=== PATIENT | female | born 1940 | race Caucasian/White ===

== ENCOUNTER → 2017-05-28 07:19 | Outpatient (CLI) | payer MEDICARE, SELFPAY ==
--- NOTE | 2017-05-28 07:22 | NM_ITS ---
History and Indications: Coronary artery disease, hypertension, diabetes, hyperlipidemia, tobacco use, family history and shortness of breath. Procedure: Patient received a 0.4 mg of Lexiscan, resting heart rate was 51 bpm, resting blood pressure 183/68, with Lexiscan maximum heart rate achieved was 89 bpm which is less than 85% of the maximum predicted heart rate and a blood pressure was 154/63. With Lexiscan patient complained of mild chest pressure and shortness of breath Electrocardiogram: Resting electrocardiogram showed sinus bradycardia, with Lexiscan there is less than 1.[address] segment depression noted from the baseline EKG. The EKG portion of the Lexiscan Myoview is nondiagnostic. Cardiac stress and resting SPECT images: Cardiac stress and rest SPECT images were obtained using technetium 99 Myoview 10.2 mCi at rest 32 mCi at stress, gated SPECT further analysis of segmental wall motion and calculation of the ejection fraction also done. Cardiac stress and rest SPECT images show a mild fixed defect anteroseptally and infero laterally with normal contractility on the gated SPECT is likely secondary to soft tissue attenuation, no reversible ischemia seen, computer derived ejection fraction is over 65% with no obvious regional wall motion abnormality, right ventricle is normal size and contractility. Conclusion: 1. The EKG portion of the Lexiscan Myoview is nondiagnostic. 2. No obvious scintigraphic evidence of reversible ischemia seen, computer derived ejection fraction is over 65% with no obvious regional wall motion abnormality, right ventricle is normal size and contractility.
--- NOTE | 2017-05-28 07:22 | CA_ITS ---
PROCEDURE: 2-D M-mode and color Doppler study INDICATIONS FOR THE TEST: Chest pain+ COPD Heart Murmur Tobacco Smoking Palpitations Fatigue Syncope Edema Hypertension+Diabetes Mellitus Rheumatic Fever SOB+MENDOZA Obesity Hyperlipidemia+ Family History HD Additional History PATIENT INFORMATION HEIGHT: 65 WEIGHT: 157 GENDER: Female B/P: 142/67 2-D/M-MODE INTERPRETATION: 2-D MEASUREMENTS OBSERVED VALUES IN CMS Right Ventricular Dimension (RVDd) 2.0 Interventricular Septum (Thickness)(IVsd) 0.8 Left Ventricular Internal Dimensions(LVIDd) 3.8 Left Ventricular Posterior Wall (Thickness)(LVPWd) 0.9 Aortic Root 3.0 Aortic Cusp Separation 2.0 Left Atrial Dimensions (LAD) 3.3 2D 1. Left atrium is mildly enlarged, left ventricle is normal size, left ventricle wall thickness is upper limit of the normal, septum has sigmoid configuration, visually estimated ejection fraction 55% with no obvious regional wall motion abnormality. 2. The right atrium and right ventricle are normal size and contractility. 3. The aortic valve is minimally thickened and fibrosed. 4. The mitral and tricuspid valve are structurally normal. 5. The pulmonic valve is poorly visualized. 6. No significant pericardial effusion noted. DOPPLER INTERROGATION: Doppler interrogation of the aortic, mitral and tricuspid valvular presence of mild mitral and tricuspid regurgitation, tricuspid regurgitant jet velocity is insufficient for calculation of the right ventricular systolic pressure, grade 1 diastolic dysfunction seen with tissue Doppler evidence of raised left atrial pressure. CONCLUSION: 1. Mildly enlarged left atrium, normal left ventricular size, visually estimated ejection fraction 55% with no obvious regional wall motion abnormality, grade 1 diastolic dysfunction seen with tissue Doppler evidence of raised left atrial pressure. 2. Mild mitral and tricuspid addition 3. No significant pericardial effusion noted.
--- NOTE | 2017-05-28 09:40 | HMH.ITSHM ---
levothyroxine cavedilol plavix [facility] b-12
== END ==
PROVIDERS: PCP Family Medicine; Visit Provider Internal Medicine
DX: I25.10 Atherosclerotic heart disease of native coronary artery without angina pectoris (principal)
CPT/HCPCS: 78452; 93017; 93306; A9502; J2785

== ENCOUNTER → 2018-10-03 06:40 | Outpatient (CLI) | payer MEDICARE, SELFPAY ==
--- NOTE | 2018-10-03 06:43 | CA_ITS ---
PROCEDURE: 2-D M-mode and color Doppler study INDICATIONS FOR THE TEST: Chest pain X COPD Heart Murmur Tobacco Smoking Palpitations Fatigue Syncope Edema HypertensionXDiabetes MellitusX Rheumatic Fever SOBXDOE Obesity Hyperlipidemia Family History HD Additional History CAD PATIENT INFORMATION HEIGHT: 65 WEIGHT:158 GENDER: Female B/P:159/46 2-D/M-MODE INTERPRETATION: 2-D MEASUREMENTS OBSERVED VALUES IN CMS Right Ventricular Dimension (RVDd) 1.6 Interventricular Septum (Thickness)(IVsd) 1.0 Left Ventricular Internal Dimensions(LVIDd) 5.0 Left Ventricular Posterior Wall (Thickness)(LVPWd) 1.0 Aortic Root 3.4 Aortic Cusp Separation 1.5 Left Atrial Dimensions (LAD) 2.9 2D 1. Left atrium is mildly enlarged, left ventricle is normal size, mild concentric left ventricular hypertrophy, visually estimated ejection fraction of 55% with no regional wall motion abnormality, septum has sigmoid configuration. 2. The right atrium and right ventricle are normal size and contractility. 3. The aortic valve is thickened and calcified leaflet continue to display mobility. 4. The mitral and tricuspid valve leaflets are minimally thickened 5. The pulmonic valve is poorly visualized. 6. No significant pericardial effusion noted. DOPPLER INTERROGATION: Doppler interrogation of the aortic, mitral and tricuspid valvular presence of mild mitral and tricuspid regurgitation, tricuspid regurgitation jet velocity is inadequate for calculation of the right ventricular systolic pressure, grade 1 diastolic dysfunction seen with tissue Doppler evidence of raised left atrial pressure. Inferior vena cava is not well visualized. CONCLUSION: 1. Mildly enlarged left atrium, normal left ventricular size, mild concentric left ventricular hypertrophy, visually estimated ejection fraction 55% with no regional wall motion abnormality, septum has sigmoid configuration. Grade 1 diastolic dysfunction seen with tissue Doppler evidence of raised left atrial pressure. 2. Mild mitral and tricuspid regurgitation. 3. No significant pericardial effusion noted.
--- NOTE | 2018-10-03 06:53 | NM_ITS ---
History:Chest pain, SOB, Syncope, Fatigue, CAD, HTN, DM, Family history Procedure: Patient received a 0.4 mg of intravenous Lexiscan, resting heart rate 57 bpm, resting blood pressure 179/76, with Lexiscan maximum heart rate achieve was 93 bpm which is less than 85 % of the maximum predicted heart rate and blood pressure was 173/67. WIth Lexiscan patient complaint of chest pain. Electrocardiogram: Resting electrocardiogram showed sinus bradycardia, with Lexiscan there is less than 1.5mm ST segment depression noted from the baseline EKG. The EKG portion of the Lexiscan Myoview is nondiagnostic. Cardias Stress and Resting SPECT images: Cardias Stress and Resting SPECT images were obtained using technetium 99m Myoview 32.6 mCi stress and 10.55 mCi at rest. Gated SPECT further analysis of segmental wall motion and calculation of ejection fraction also done. Cardiac stress and resting SPECT show uniform myocardial activity without segmental perfusion abnormality, the computer derived ejection fraction is over 65% with regional wall motion abnormality. Right ventricle is normal size and contractility. Conclusion: 1. The EKG portion of the Lexiscan Myoview is nondiagnostic. 2. No scintigraphic evidence of reversible ischemia seen, computer derived ejection fraction is over 65% with no regional wall motion abnormality. Right ventricle is normal size and contractility. 3. Normal Lexiscan Myoview study.
--- NOTE | 2018-10-03 07:18 | HMH.ITSHM ---
Current Home Medications as stated by this patient Yeni Smith or customer relations representative. []LEVOTHYROXINE CARVEDILOL VITAMIN D CLOPIDOGREL NOVOLIN TEKTURNA VITAMIN B12 NEXIUM LINZESS MAGNESIUM OXIDE
== END ==
PROVIDERS: PCP Family Medicine; Visit Provider Internal Medicine
DX: I20.8 Other forms of angina pectoris; R06.02 Shortness of breath; I11.9 Hypertensive heart disease without heart failure
CPT/HCPCS: 78452; 93017; 93306; A9502; J2785

== ENCOUNTER → 2019-12-26 16:14 | Outpatient (CLI) | payer MEDICARE, SELFPAY ==
--- NOTE | 2019-12-26 16:14 | MR_ITS ---
PROCEDURE: MR HEAD/BRAIN WO CON CLINICAL INDICATION: to rule out CVA Confusion, blurred vision, headache, recent TIA COMPARISON: No exams were available for comparison TECHNIQUE: Routine multiplanar multi echo sequences are performed without gadolinium enhancement. FINDINGS: No midline shift, mass effect, intracranial hemorrhage, or hydrocephalus is evident. There is a small cortical area restricted diffusion in the right parietal lobe. This is slightly hyperintense on the ADC images suggesting a subacute area of infarction. No other areas of acute infarction suspected. There is a complex small oval cystic area in the left external capsule region consistent with an old lacunar infarction with cystic encephalomalacia change. There are few scattered periventricular and subcortical T2 white matter hyperintensities noted. There is mild generalized atrophy. The cerebellopontine angle, cerebellum, and brainstem have an unremarkable appearance. The pituitary, optic chiasm, corpus callosum, and craniocervical junction have an unremarkable appearance. No mastoid effusion or sinus air-fluid levels evident. IMPRESSION: 1. Small area of subacute infarction in the cortical region of the right parietal lobe. 2. Involutional changes of age with mild atrophy and periventricular ischemic gliotic change. 3. 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
== END ==
PROVIDERS: PCP Family Medicine; Visit Provider Internal Medicine
DX: E11.9 Type 2 diabetes mellitus without complications (principal); E78.2 Mixed hyperlipidemia; G45.9 Transient cerebral ischemic attack, unspecified; H53.8 Other visual disturbances; I11.9 Hypertensive heart disease without heart failure; N18.2 Chronic kidney disease, stage 2 (mild); R06.02 Shortness of breath; R42 Dizziness and giddiness; R47.9 Unspecified speech disturbances; R53.83 Other fatigue; Z79.4 Long term (current) use of insulin
CPT/HCPCS: 70551

== ENCOUNTER 2022-03-13 16:15 | Inpatient (IN) | payer MEDICARE, SELFPAY ==
[2022-03-13 16:25] VITALS: BP 190/56; PULSE 70; RESP 18; TEMP 36.9; O2SAT 95
--- NOTE | 2022-03-13 16:31 | PC.NURSE ---
notified of pt's arrival. Verbalized understanding.
[2022-03-13 16:45] VITALS: BP 178/61; PULSE 68; RESP 18
[2022-03-13 17:00] VITALS: O2SAT 95
[2022-03-13 17:46] VITALS: BMI 27.9
--- NOTE | 2022-03-13 17:56 | CT_ITS ---
PROCEDURE INFORMATION: Exam: CT Left Lower Extremity Without Contrast, Hip Exam date and time: 03/13/2022 6:17 PM Age: 81 years old Clinical indication: Injury or trauma; Fall; Additional info: Fracture to left hip TECHNIQUE: Imaging protocol: CT of the Left lower extremity without contrast was performed. Exam focused on the hip. 3D rendering (Not supervised by radiologist): MIP and/or 3D reconstructed images were created by the technologist. Radiation optimization: All CT scans at this facility use at least one of these dose optimization techniques: automated exposure control; mA and/or kV adjustment per patient size (includes targeted exams where dose is matched to clinical indication); or iterative reconstruction. COMPARISON: No relevant prior studies available. FINDINGS: Bones/joints: Slightly impacted fracture of the femoral neck with increased varus angulation. There is no evidence of joint malalignment or dislocation. Soft tissues: Lateral soft tissue swelling. IMPRESSION: 1. Slightly impacted fracture of the femoral neck with increased varus angulation. 2. Lateral soft tissue swelling. 3. No evidence of acute dislocation.
--- NOTE | 2022-03-13 18:17 | PC.NURSE ---
Pt taken to CT via bed and Radiology staff x2.
--- NOTE | 2022-03-13 18:24 | PC.NURSE ---
Pt returned to room [address] Scan
[2022-03-13 18:44] LABS: Basophils % 0.2 % (0.1-2.0); Eosinophils # 0.1 K/mm3 (0.0-0.4); Eosinophils % 0.5 % (0.1-12.0); Hematocrit 41.5 % (37.0-47.0); Hemoglobin 13.6 g/dL (12.2-16.2); Lymphocytes # 0.8 K/mm3 (0.7-4.5); Mean Corpuscular HGB Conc 32.8 g/dL (31.8-35.4); Mean Corpuscular Hemoglobin 30.2 pg (27.0-31.2); Mean Corpuscular Volume 92.2 fl (81-99); Mean Platelet Volume 8.4 fl (7.4-10.4); Monocytes # 0.7 K/mm3 (0.1-1.0); Monocytes % 5.3 % (1.7-9.3); Neutrophils # 12.2 K/mm3 (1.8-7.8); Platelet Count 243 K/mm3 (142-424); Red Cell Distribution Width 13.6 % (11.5-17.5); White Blood Count 13.8 K/mm3 (4.8-10.8)
[2022-03-13 18:46] LABS: MANUAL DIFFERENTIAL MANUAL DIFFERENTIAL (MANUAL DIFF)
[2022-03-13 19:00] LABS: Chloride 102 mmol/L (98-107); Potassium 4.1 mmoL/L (3.5-5.1); Sodium 139 mmol/L (136-145)
[2022-03-13 19:03] LABS: Alanine Aminotransferase 21 U/L (12-78); Albumin Level 4.3 g/dl (3.5-5.0); Albumin/Globulin Ratio 1.7 (1.1-1.8); Alkaline Phosphatase 97 U/L (38-126); Anion Gap 13.1 mEq/L (5-15); Aspartate Amino Transferase 41 U/L (14-36); Bilirubin,Total 0.8 mg/dl (0.2-1.3); Blood Urea Nitrogen 15 mg/dl (7-17); Calcium 9.5 mg/dl (8.4-10.2); Carbon Dioxide 28 mmol/L (22.0-30.0); Creatinine Clearance Estimated 51 mL/min (50-200); Estimated Glomerular Filt Rate 60 ml/min (>60); GFR (African American) 73 ML/MIN (>60); Globulin 2.6 g/dL (1.3-3.2); Glucose 153 mg/dl (74-100); Total Protein,Serum 6.9 g/dl (6.3-8.2)
[2022-03-13 19:16] LABS: INR 0.95 (0.9-1.1); Prothrombin Time 10.3 seconds (10.1-12.5)
[2022-03-13 19:17] LABS: Lymphocytes % 11 % (10-50); Monocytes % 1 % (2-9); Neutrophils % 83 % (42-76); Total Cells Counted 100
[2022-03-13 19:18] LABS: Platelet Estimate Normal; RBC Morphology Normal
--- NOTE | 2022-03-13 19:46 | EXP.HP ---
History of Present Illness *Admission Date: 03/13/22 *Reason for visit:: Fall *History of present illness: 81-year-old female with extensive medical history who presents as a transfer from [facility] due to a fall to ground level while standing in line at [facility]. Patient does not remember any preceding events but spontaneously fell and landing on her hip breaking her left femur. Did not lose consciousness. Did not hit her head does not have any infectious symptoms or urinary tract infection symptoms. Patient was transferred for orthopedic evaluation at [facility]. Currently she is anxious and in significant pain due to her hip. She has no other complaint at this time. Discussed going to the OR in the morning and symptomatic management. Patient is agreeable understands. [facility] Disclaimer: The information contained in this section may have been updated after the patient was seen, as this information can be updated by other users. Medical History Abnormal EKG Blurry vision Difficulty with speech Dizziness Sinus bradycardia TIA (transient ischemic attack) Social History Smoking Status: Never smoker alcohol intake: never substance use type: denies use current occupational status: other Travel in the last 8 weeks: None Review of Systems Review of Systems Review of systems:: pertinent systems reviewed and negative unless documented below Meds Home Medications and Allergies Home Medications Medication Instructions Recorded Confirmed Type levothyroxine 100 mcg tablet 100 mcg PO DAILY Supplement 05/18/17 03/13/22 History cholecalciferol (vitamin D3) 50 2,000 unit PO DAILY Supplement 09/22/17 03/13/22 History mcg (2,000 unit) capsule cyanocobalamin (vitamin B-12) 1,000 mcg PO DAILY Supplement 09/22/17 03/13/22 History 1,000 mcg tablet (Vitamin B-12) esomeprazole magnesium 40 mg 40 mg PO DAILY Heartburn 09/22/17 03/13/22 History capsule,delayed release (Nexium) polyethylene glycol 3350 17 17 g PO DAILY PRN 09/20/18 11/04/21 History gram/dose oral powder (Miralax) vitamins A,C,A-ymre-iujycz 14,320 1 cap PO BID Supplement 09/20/18 03/13/22 History unit-226 mg-200 unit capsule (ICaps AREDS) nitroglycerin 0.4 mg sublingual 0.4 mg sublingual Q5M PRN chest 10/31/19 11/04/21 Rx tablet (Nitrostat) pain #20 tabs insulin NPH isoph U-100 human 100 12 - 14 unit SQ BID Diabetes 06/24/20 03/13/22 History unit/mL subcutaneous suspension (Novolin N NPH U-100 Insulin isophane) insulin regular human 100 unit/mL 6 - 8 unit IM BID Diabetes 06/24/20 03/13/22 History injection solution (Novolin R Regular U-100 Insulin) aliskiren 300 mg tablet (Tekturna) 300 mg PO DAILY High blood pressure 03/13/22 03/13/22 History amlodipine 10 mg tablet 10 mg PO DAILY Hypertension 03/13/22 03/13/22 History carvedilol 25 mg tablet (Coreg) 12.5 mg PO BID Heart disease 03/13/22 03/13/22 History clopidogrel 75 mg tablet 75 mg PO DAILY Heart disease 03/13/22 03/13/22 History evolocumab 140 mg/mL subcutaneous See Rx Instructions .Route 03/13/22 03/13/22 History pen injector (Repatha SureClick) .COMPLEX Heart disease New Prescriptions to Start Prescriptions: Allergies Allergy/AdvReac Type Severity Reaction Status Date / Time tizanidine Allergy Severe unknown Verified 03/13/22 17:57 ezetimibe [From Nexlizet] Allergy Intermediate myalgia Verified 03/13/22 17:55 aspirin Allergy Mild Verified 03/13/22 17:57 clopidogrel [From Plavix] Allergy Mild Verified 03/13/22 17:57 NSAIDS (Non-Steroidal Allergy Mild Verified 03/13/22 17:57 Anti-Inflamma Penicillins Allergy Mild Verified 03/13/22 17:57 Ddlqukp-ZQZ-RiT Reductase Allergy Mild Verified 03/13/22 17:57 Inhibitor [Xqoyngy-Iye-Pad Reductase Inhibitor] Sulfa (Sulfonamide Allergy Mild Verified 03/13/22 17:57
[2022-03-13 20:25] VITALS: BP 153/57; PULSE 67; RESP 17; TEMP 37.4; O2SAT 94
[2022-03-13 20:30] LABS: POC Glucose,Bedside 161 (70-110)
[2022-03-14] VITALS (24 sets, daily range): BP systolic 114–156; BP diastolic 46–77; PULSE 56–70; RESP 14–18; TEMP 36.4–43; O2SAT 92–98; BMI 27.8
--- NOTE | 2022-03-14 00:10 | XR_ITS ---
PROCEDURE INFORMATION: Exam: XR Chest Exam date and time: 03/14/2022 12:52 AM Age: 81 years old Clinical indication: Screening exam; Pre-operative exam; Cardiovascular screening; Additional info: Pre-op for hip surgery TECHNIQUE: Imaging protocol: Radiologic exam of the chest. Views: 1 view. COMPARISON: No relevant prior studies available. FINDINGS: Lungs: Unremarkable. No consolidation. Pleural spaces: Unremarkable. No pleural effusion. No pneumothorax. Heart/Mediastinum: Unremarkable. No cardiomegaly. Bones/joints: Unremarkable. IMPRESSION: No acute findings.
[2022-03-14 00:48] LABS: Microscopic, Urine URINE MICROSCOPIC (MICROSCOPIC)
--- NOTE | 2022-03-14 01:00 | ECG_ITS ---
APPROVED REPORT Exam: Resting ECG HR:58 bpm ECG Measurements Heart Rate 58 AXES HI 181 P 48 QRSd 98 QRS 23 QT 400 T 51 QTc 397 Conclusion SINUS BRADYCARDIA LOW QRS VOLTAGE IN PRECORDIAL LEADS [QRS DEFLECTION < 1.0 mV IN CHEST LEADS] BORDERLINE ECG UNCONFIRMED REPORT Electronically signed by : Rogelio Grimm MD 03/14/2022 21:19:28
[2022-03-14 01:01] LABS: Appearance,Urine CLEAR (Clear); Bilirubin,Urine Negative (Negative); Blood, Urine TRACE-L (Negative); Color,Urine YELLOW (Yellow); Glucose,Urine (UA) Negative (Negative); Ketones,Urine Negative (Negative); Leukocyte Esterase,Urine Negative (Negative); Nitrate,Urine Negative (Negative); Protein,Urine TRACE (Negative); Urobilinogen,Urine 0.2 EU/dl (0.2)
[2022-03-14 01:06] LABS: Amorphous Sediment,Urine Trace /lpf; Mucus,Urine Trace /lpf
--- NOTE | 2022-03-14 01:09 | PC.NURSE ---
called hospitalist at this [facility], EKG shows bradycardia with a rate of 57. states EKG is fine to place in chart.
[2022-03-14 07:19] LABS: POC Glucose,Bedside 169 (70-110)
--- NOTE | 2022-03-14 07:20 | PC.NURSE ---
at bs to discuss procedure with pt. Pt verbalizes understanding. Consent signed. O.R. staff x2 at bs also.
--- NOTE | 2022-03-14 07:25 | PC.NURSE ---
dr collins in room discussing surgery with patient at this time
--- NOTE | 2022-03-14 07:30 | PC.NURSE ---
anesthesia on unit discussing anesthesia at this time
--- NOTE | 2022-03-14 07:36 | PC.NURSE ---
Pt taken to O.R. via bed and O.R. nurse (Bijal) and anesthesia (Phu).
--- NOTE | 2022-03-14 07:41 | EXP.ORTH.CON ---
History of Present Illness *Admission Date: 03/13/22 *History of present illness: 81-year-old female with extensive medical history who presents as a transfer from [facility] due to a fall to ground level while standing in line at [facility]. Patient does not remember any preceding events but spontaneously fell and landing on her hip breaking her left femur. Did not lose consciousness. Did not hit her head does not have any infectious symptoms or urinary tract infection symptoms. Patient was transferred for orthopedic evaluation at [facility]. Currently she is anxious and in significant pain due to her hip. She has no other complaint at this time. Discussed going to the OR in the morning and symptomatic management. Patient is agreeable understands. [facility] Disclaimer: The information contained in this section may have been updated after the patient was seen, as this information can be updated by other users. Medical History Abnormal EKG Blurry vision Difficulty with speech Dizziness Sinus bradycardia TIA (transient ischemic attack) Social History Smoking Status: Never smoker alcohol intake: never substance use type: denies use current occupational status: other Travel in the last 8 weeks: None Review of Systems *Respiratory Respiratory: Reports system reviewed and no additional complaints, except as documented Meds Home Medications and Allergies Home Medications Medication Instructions Recorded Confirmed Type levothyroxine 100 mcg tablet 100 mcg PO DAILY Supplement 05/18/17 03/13/22 History cholecalciferol (vitamin D3) 50 2,000 unit PO DAILY Supplement 09/22/17 03/13/22 History mcg (2,000 unit) capsule cyanocobalamin (vitamin B-12) 1,000 mcg PO DAILY Supplement 09/22/17 03/13/22 History 1,000 mcg tablet (Vitamin B-12) esomeprazole magnesium 40 mg 40 mg PO DAILY Heartburn 09/22/17 03/13/22 History capsule,delayed release (Nexium) polyethylene glycol 3350 17 17 g PO DAILY PRN 09/20/18 11/04/21 History gram/dose oral powder (Miralax) vitamins A,C,Z-ukrb-sbchnc 14,320 1 cap PO BID Supplement 09/20/18 03/13/22 History unit-226 mg-200 unit capsule (ICaps AREDS) nitroglycerin 0.4 mg sublingual 0.4 mg sublingual Q5M PRN chest 10/31/19 11/04/21 Rx tablet (Nitrostat) pain #20 tabs insulin NPH isoph U-100 human 100 12 - 14 unit SQ BID Diabetes 06/24/20 03/13/22 History unit/mL subcutaneous suspension (Novolin N NPH U-100 Insulin isophane) insulin regular human 100 unit/mL 6 - 8 unit IM BID Diabetes 06/24/20 03/13/22 History injection solution (Novolin R Regular U-100 Insulin) aliskiren 300 mg tablet (Tekturna) 300 mg PO DAILY High blood pressure 03/13/22 03/13/22 History amlodipine 10 mg tablet 10 mg PO DAILY Hypertension 03/13/22 03/13/22 History carvedilol 25 mg tablet (Coreg) 12.5 mg PO BID Heart disease 03/13/22 03/13/22 History clopidogrel 75 mg tablet 75 mg PO DAILY Heart disease 03/13/22 03/13/22 History evolocumab 140 mg/mL subcutaneous See Rx Instructions .Route 03/13/22 03/13/22 History pen injector (Repatha SureRaviick) .COMPLEX Heart disease New Prescriptions to Start Prescriptions: Allergies Allergy/AdvReac Type Severity Reaction Status Date / Time tizanidine Allergy Severe unknown Verified 03/13/22 17:57 ezetimibe [From Nexlizet] Allergy Intermediate myalgia Verified 03/13/22 17:55 aspirin Allergy Mild Verified 03/13/22 17:57 clopidogrel [From Plavix] Allergy Mild Verified 03/13/22 17:57 NSAIDS (Non-Steroidal Allergy Mild Verified 03/13/22 17:57 Anti-Inflamma Penicillins Allergy Mild Verified 03/13/22 17:57 Loljhzo-DRB-YbK Reductase Allergy Mild Verified 03/13/22 17:57 Inhibitor [Pqailfk-Ykm-Poq Reductase Inhibitor] Sulfa (Sulfonamide Allergy Mild Verified 03/13/22 17:57 Antibiotics) ticlop
[2022-03-14 07:50] LABS: Basophils % 0.4 % (0.1-2.0); Eosinophils # 0.2 K/mm3 (0.0-0.4); Eosinophils % 2.5 % (0.1-12.0); Hematocrit 37.3 % (37.0-47.0); Hemoglobin 12.3 g/dL (12.2-16.2); Lymphocytes % 10.2 % (10-50); Mean Corpuscular Hemoglobin 30.6 pg (27.0-31.2); Mean Corpuscular Volume 92.9 fl (81-99); Mean Platelet Volume 8.4 fl (7.4-10.4); Monocytes # 0.7 K/mm3 (0.1-1.0); Monocytes % 7.1 % (1.7-9.3); Neutrophils # 7.7 K/mm3 (1.8-7.8); Neutrophils % 79.8 % (37.0-80.0); Platelet Count 248 K/mm3 (142-424); Red Blood Count 4.01 M/mm3 (4.20-5.40); Red Cell Distribution Width 13.5 % (11.5-17.5); White Blood Count 9.6 K/mm3 (4.8-10.8)
[2022-03-14 07:56] LABS: Alanine Aminotransferase 16 U/L (12-78); Albumin Level 3.9 g/dl (3.5-5.0); Albumin/Globulin Ratio 1.7 (1.1-1.8); Alkaline Phosphatase 82 U/L (38-126); Anion Gap 11.1 mEq/L (5-15); Aspartate Amino Transferase 28 U/L (14-36); Bilirubin,Total 0.9 mg/dl (0.2-1.3); Blood Urea Nitrogen 20 mg/dl (7-17); Calcium 8.9 mg/dl (8.4-10.2); Carbon Dioxide 28 mmol/L (22.0-30.0); Chloride 102 mmol/L (98-107); Creatinine Clearance Estimated 46 mL/min (50-200); Estimated Glomerular Filt Rate 48 ml/min (>60); GFR (African American) 58 ML/MIN (>60); Globulin 2.3 g/dL (1.3-3.2); Glucose 172 mg/dl (74-100); Magnesium 1.3 mg/dl (1.6-2.3); Phosphorous 4.2 mg/dl (2.5-4.5); Potassium 4.1 mmoL/L (3.5-5.1); Sodium 137 mmol/L (136-145); Total Protein,Serum 6.2 g/dl (6.3-8.2)
--- NOTE | 2022-03-14 08:21 | EXP.ANES.CKL ---
[facility] Disclaimer: The information contained in this section may have been updated after the patient was seen, as this information can be updated by other users. Medical History Abnormal EKG Blurry vision Difficulty with speech Dizziness Sinus bradycardia TIA (transient ischemic attack) Social History Smoking Status: Never smoker alcohol intake: never substance use type: denies use current occupational status: other Travel in the last 8 weeks: None [facility] Anesthesia Checklist Patient Identification Patient Identification: Arm Band and Verbal (Name & ) Structural Data Admitted From: Inpatient Planned Operative Procedure/s: Left Ezio Arthroplasty Consent for Planned Operative Procedure(s) Verified: Yes Verified Documents: Surgical Consent NPO Status Verified Time NPO: 00:00 Airway Assessment C-Spine Mobility Assessed: Yes TMJ Mobility Assessed: Yes Dentition: Good Dentition Neurological Assessment Level of Consciousness: Awake, Alert and Appropriate Anesthesia Plan Anesthesia Risk discussed: Yes ASA Class: III Anesthesia Type: General
--- NOTE | 2022-03-14 09:43 | XR_ITS ---
PROCEDURE INFORMATION: Exam: XR Left Hip Exam date and time: 03/14/2022 10:18 AM Age: 81 years old Clinical indication: Device placement; Additional info: S/P left hip hemiarthroplasty TECHNIQUE: Imaging protocol: Radiologic exam of the Left hip. Views: 2 or 3 views hip with pelvis when performed. COMPARISON: CT HIP LT WO CON 03/13/2022 6:17 PM FINDINGS: Bones/joints: Postoperative changes related to left hybrid hemiarthroplasty. No hardware-related complication noted. No hardware-related complication noted. No visible fracture or dislocation. Soft tissues: Unremarkable. IMPRESSION: No visible fracture or dislocation.
--- NOTE | 2022-03-14 09:59 | EXP.ANES.I ---
[facility] Anesthesia Record Part I Anesthesia Record I Intake, IV Amount: 1,200 Estimated blood loss (mL): 350 Urine output (mL): 100 Blood Pressure: 141/56 SaO2: 92 Pulse Rate: 67 Respiratory Rate: 14 Temperature: 97.5 F Patient is:: Drowsy, Mask O2 and Stable Stable to PACU at:: 09:54
--- NOTE | 2022-03-14 10:02 | EXP.OP.NOTE ---
Date of procedure: 03/14/22 Pre-op Diagnosis:: Left femoral neck fracture Post-op Diagnosis:: Same Procedure performed:: Cemented left hip hemiarthroplasty Surgeon:: Trace Shaw JR, MD LITHOGRAPHING MACHINE OPERATOR:: Phu Paul Anesthesia: GRACIELA Estimated blood loss (mL): 350 Clinical Note:: 81-year-old female sustained left femoral neck fracture as result of a ground-level fall. I had a discussion with her regarding further management and after discussion of risk, benefits, alternatives, she wished to proceed with left cemented hip hemiarthroplasty. We discussed the risk and benefits of surgery. Risks included but were not limited to pain, bleeding, infection, damage to adjacent structures, need for further surgery, wound healing complications, loss of limb, . Patient expressed verbal consent and written consent was obtained for the above procedure. Operative findings:: Symmetric leg length, stable hip noted. [employer] bipolar cemented Ezio system. Size 0 standard offset stem, +0 head, 47 mm bipolar. Operative note:: Patient was identified in preoperative holding. Operative site was marked in indelible ink. History, physical, consent were reviewed and updated. Patient was surrendered to the anesthesia team, taken to the operative suite. Anesthesia was induced. Patient was then placed in the lateral decubitus position on a well-padded operative table. All bony prominences were padded and an axillary roll was placed. The operative extremity was prepped and draped in the usual sterile fashion. The operative team donned sterile gowns and gloves and a timeout was called. All in attendance agreed regarding the patient's identity, procedure, operative site. Weight-based dose of antibiotics was given prior to incision. A skin maker was then used to wilton all bony prominences. Skin incision was then carried out extending from the greater trochanter in a curvilinear fashion posteriorly across the buttocks. I incised the skin with a scalpel, then using a Bovie dissected through tissues. The fascia patricia was incised utilizing Metzenbaum scissors. This was taken down to the bursa, which was removed utilizing a rongeur. Utilizing a periosteal elevator as well as the sponge, the fat was then freed from the short external rotators of the left hip after these were placed and stretched. The sciatic nerve was protected. Bovie was used to remove the short external rotators from the greater trochanter, which revealed the joint capsule. His were tagged for later repair. The capsule was cleared and incised utilizing a T-shape incision. A fracture hematoma was noted upon entering the joint capsule as well as the femoral neck fracture. A cork screw was then used to remove the fractured femoral head, which was given to the regulatory technician which was sized on the back table. All bony remnants were then removed from the acetabulum and surrounding soft tissue with a rongeur. Acetabulum was then inspected and found to be clear. Attention was then turned to the proximal femur where a cutting tunnel was used to wilton the femur for the femoral neck cut. A sagittal saw was then used to make the femoral cut. Box osteotome was then used to remove the bone from proximal femur. A femoral neck elevator was utilized. Next, attention was turned to broaching. Initially, a small broach was placed, first making efforts to lateralize the broach then the femoral canal. Next, the trial components were inserted consisting of the above-mentioned component sizes. The hip was taken through range of motion and tested to adduction, internal and external rotations as well as with a shuck and a posterior directed force on a flexed hip. It was noted that these size were stable through the range of motion. Next, the trial components were removed and the femoral canal was copiously irrigated and suctioned dry. The femoral component was then inserted. The bipolar head was applied. The hip was subsequently reduced and taken a
--- NOTE | 2022-03-14 10:57 | PC.NURSE ---
1003-fsbs 201, notified JASON Johnson, no further orders 1013-radiology at bedside 1028-detailed report called to BlankaRN 1032-pt transported to med/surg room 208 via hospital bed w/danay rails up and left in care of LAURENCE Moscoso with bed locked in lowest position, pt eating ice chips and drinking water w/out difficulty, pt reports nausea after transport-placed cool wash cloths on forehead and behind neck, notified RN taking over care of pt, vss, pt stable
--- NOTE | 2022-03-14 11:04 | PC.NURSE ---
notified pts family of her arrival back to floor
--- NOTE | 2022-03-14 11:35 | PC.NURSE ---
Notified Rodolfo of PT eval order on patient.
--- NOTE | 2022-03-14 13:39 | HMH.PHAINT1 ---
Pharmacy Intervention Comments: MEDICATION RECONCILIATION COMPLETED ON PATIENT USING EXTERNAL FILL HISTORY FROM PHARMACY AND LIST FROM CARDIOLOGY OFFICE. -KATALINA RUSSO, ACOSTAD
--- NOTE | 2022-03-14 14:45 | EXP.ACUTE.PN ---
Subjective *Date: 03/14/22 *Time: 14:45 Interval history: Evaluated postoperatively. Pain well controlled. Mild nausea. Eyes severe dryness and pain Medical Exam Vital signs and Labs for Last 24 Hours: Vital Signs Temp Pulse Pulse Pulse Resp BP BP 03/14/22 12:00 56 L 03/14/22 10:32 97.9 F 61 18 144/64 H 03/14/22 10:24 66 18 156/62 H 03/14/22 10:14 70 18 154/77 H 03/14/22 10:04 63 16 151/51 H 03/14/22 09:54 97.5 F L 67 14 141/56 H 03/14/22 06:00 98.8 F 69 18 156/57 H 03/14/22 01:10 98.7 F 67 18 150/50 H 03/13/22 20:25 99.3 F 67 17 153/57 H 03/13/22 17:00 03/13/22 16:45 68 18 178/61 H 03/13/22 16:25 98.4 F 70 18 190/56 H 03/14/22 10:00 97.5 F L 67 14 141/56 H Pulse Ox 03/14/22 12:00 03/14/22 10:32 97 03/14/22 10:24 98 03/14/22 10:14 97 03/14/22 10:04 95 03/14/22 09:54 92 L 03/14/22 06:00 94 L 03/14/22 01:10 94 L 03/13/22 20:25 94 L 03/13/22 17:00 95 03/13/22 16:45 03/13/22 16:25 95 03/14/22 10:00 Intake and Output 03/13/22 03/14/22 03/14/22 23:59 07:59 15:59 Intake Total 1300 / 1300 Output Total 1200 / 1200 50 / 50 Balance -1200 / -1200 1250 / 1250 Intake: Intake, Total IV Amount 1300 / 1300 Tranexamic Acid 750 mg In 0.9 % 100 / 100 Sodium Chloride 250 ml @ 500 mls/hr IV Q3H [facility] Rx#:[id number] Output: Output, Urine Amount 1200 / 1200 0 / 0 Output, Urine Amount (Catheter) 50 / 50 Sanchez 50 / 50 Other: Number of Unmeasured Voids 0 Weight 73.936 kg Laboratory Results - last 24 hr 03/13/22 18:35: WBC 13.8 H, RBC 4.50, Hgb 13.6, Hct 41.5, MCV 92.2, MCH 30.2, MCHC 32.8, RDW 13.6, Plt Count 243, MPV 8.4, Neut % (Auto) 88.0 H, Lymph % (Auto) 6.0 L, [place] % (Auto) 5.3, Eos % (Auto) 0.5, Baso % (Auto) 0.2, Neut # (Auto) 12.2 H, Lymph # (Auto) 0.8, [place] # (Auto) 0.7, Eos # (Auto) 0.1, Baso # (Auto) 0.0, Total Counted 100, Neutrophils % (Manual) 83 H, Band Neutrophils % 5.0, Lymphocytes % (Manual) 11, Monocytes % (Manual) 1 L, Platelet Estimate Normal, RBC Morphology Normal 03/13/22 18:35: PT 10.3, INR 0.95 03/13/22 18:35: Sodium 139, Potassium 4.1, Chloride 102, Carbon Dioxide 28, Anion Gap 13.1, BUN 15, Creatinine 0.90, Estimated Creat Clear 51, Estimated GFR 60, Est GFR ( Amer) 73, Glucose 153 H, Calcium 9.5, Total Bilirubin 0.8, AST 41 H, ALT 21, Alkaline Phosphatase 97, Total Protein 6.9, Albumin 4.3, Globulin 2.6, Albumin/Globulin Ratio 1.7 03/13/22 20:10: POC Glucose 161 H 03/13/22 22:56: Blood Type O Positive, Antibody Screen Negative 03/14/22 00:26: Urine Color Yellow, Urine Appearance Clear, Urine pH 6.0, Ur Specific [place] 1.020, Urine Protein Trace, Urine Glucose (UA) Negative, Urine Ketones Negative, Urine Blood Trace-l, Urine Nitrate Negative, Urine Bilirubin Negative, Urine Urobilinogen 0.2, Ur Leukocyte Esterase Negative, Urine RBC 3-5, Urine WBC 5-10, Amorphous Sediment Trace, Urine Mucus Trace 03/14/22 07:11: POC Glucose 169 H 03/14/22 07:22: WBC 9.6 D, RBC 4.01 L, Hgb 12.3, Hct 37.3, MCV 92.9, MCH 30.6, MCHC 33.0, RDW 13.5, Plt Count 248, MPV 8.4, Neut % (Auto) 79.8, Lymph % (Auto) 10.2, [place] % (Auto) 7.1, Eos % (Auto) 2.5, Baso % (Auto) 0.4, Neut # (Auto) 7.7, Lymph # (Auto) 1.0, [place] # (Auto) 0.7, Eos # (Auto) 0.2, Baso # (Auto) 0.0 03/14/22 07:22: Sodium 137, Potassium 4.1, Chloride 102, Carbon Dioxide 28, Anion Gap 11.1, BUN 20 H D, Creatinine 1.10 H D, Estimated Creat Clear 46, Estimated GFR 48 L, Est GFR ( Amer) 58 L D, Glucose 172 H, Calcium 8.9, Phosphorus 4.2, Magnesium 1.3 L, Total Bilirubin 0.9, AST 28 D, ALT 16, Alkaline Phosphatase 82, Total Protein 6.2 L, Albumin 3.9, Globulin 2.3, Albumin/Globulin Ratio 1.7 I & O for Labs for Last 24 Hours: Intake & Output 03/11/22 03/12/22 03/13/22 03/14/22 23:59 23:59 23:59 23:59 Intake Total 1300 / 1300 Output Total 1200 / 1200 50 / 50 Balance -1200 / -1
[2022-03-14 17:17] LABS: POC Glucose,Bedside 170 (70-110)
--- NOTE | 2022-03-14 18:39 | PC.NURSE ---
pt has rested well today. Denies any pain through out the shift. f/c patent @ bedside. poor appetite. reports improved eye irritation after ointment administration
[2022-03-14 20:39] LABS: POC Glucose,Bedside 209 (70-110)
[2022-03-15] VITALS (7 sets, daily range): BP systolic 133–160; BP diastolic 41–60; PULSE 66–90; RESP 16–18; TEMP 36.6–37.7; O2SAT 90–97; BMI 27.8
[2022-03-15 06:01] LABS: POC Glucose,Bedside 226 (70-110)
--- NOTE | 2022-03-15 06:14 | PC.NURSE ---
Pt. c/o heartburn this morning and i called the LINING PRINTER. Pt. states she takes nexium but the hospital only has protonix. pt. refused the extra dose of protonix ordered this morning.
--- NOTE | 2022-03-15 07:22 | P.PN_ITS ---
Subjective *Date: 03/15/22 *Time: 07:22 Interval history: Comfortable overnight. Ortho Exam (Inpt) Vital signs and Labs for Last 24 Hours: Temp Pulse Resp BP Pulse Ox 98 F 74 16 140/56 L 92 L 03/15/22 04:00 03/15/22 04:00 03/15/22 04:00 03/15/22 04:00 03/15/22 04:00 Laboratory Results - last 24 hr 03/14/22 07:22: WBC 9.6 D, RBC 4.01 L, Hgb 12.3, Hct 37.3, MCV 92.9, MCH 30.6, MCHC 33.0, RDW 13.5, Plt Count 248, MPV 8.4, Neut % (Auto) 79.8, Lymph % (Auto) 10.2, [place] % (Auto) 7.1, Eos % (Auto) 2.5, Baso % (Auto) 0.4, Neut # (Auto) 7.7, Lymph # (Auto) 1.0, [place] # (Auto) 0.7, Eos # (Auto) 0.2, Baso # (Auto) 0.0 03/14/22 07:22: Sodium 137, Potassium 4.1, Chloride 102, Carbon Dioxide 28, Anion Gap 11.1, BUN 20 H D, Creatinine 1.10 H D, Estimated Creat Clear 46, Estimated GFR 48 L, Est GFR ( Amer) 58 L D, Glucose 172 H, Calcium 8.9, Phosphorus 4.2, Magnesium 1.3 L, Total Bilirubin 0.9, AST 28 D, ALT 16, Alkaline Phosphatase 82, Total Protein 6.2 L, Albumin 3.9, Globulin 2.3, Albumin/Globulin Ratio 1.7 03/14/22 16:45: POC Glucose 170 H 03/14/22 20:24: POC Glucose 209 H 03/15/22 05:54: POC Glucose 226 H I & O for Labs for Last 24 Hours: Intake & Output 03/12/22 03/13/22 03/14/22 03/15/22 23:59 23:59 23:59 23:59 Intake Total 1300 / 1300 200 / 200 Output Total 1200 / 1200 150 / 150 350 / 350 Balance -1200 / -1200 1150 / 1150 -150 / -150 Weight 163 lb 162 lb 14.746 oz 163 lb 3.2 oz Head: Present normocephalic and atraumatic ENT: Present mucous membranes moist Neck: Present normal inspection Respiratory: Present normal respiratory effort and symmetric chest movement; Absent accessory muscle use or respiratory distress Cardiac: Present Reg Rate and Rhythm and radial pulses present GI: Present soft; Absent distention Rectal (female): Present deferred (female): Present deferred Additional Findings:: Left hip wound inspected, Prineo/Dermabond in place, no erythema, drainage, warmth. Palpable dorsalis pedis/posterior tibial pulse. Sensation intact to light touch deep peroneal, superficial peroneal, tibial, sural, saphenous nerve distribution. 5/5 motor function intact to extensor hallicus longus, flexor hallicus longus, tibialis anterior, gastroc/soleus, posterior tibialis, foot eversion. Assessment and Plan *Assessment and plan (1) Hip fracture: Status: Acute Category: Medical Code(s): S72.009A - Fracture of unspecified part of neck of unspecified femur, initial encounter for closed fracture Plan 81-year-old female status post left cemented hip hemiarthroplasty. Weightbearing as tolerated. Posterior hip precautions. PT/OT. 23 hours antibiotics. DVT prophylaxis: Xarelto 10 mg daily for 5 weeks. Follow-up 2 weeks for wound check and radiographs.
[2022-03-15 07:31] LABS: Basophils % 0.1 % (0.1-2.0); Eosinophils # 0.2 K/mm3 (0.0-0.4); Hematocrit 29.2 % (37.0-47.0); Lymphocytes # 0.8 K/mm3 (0.7-4.5); Lymphocytes % 7.8 % (10-50); Mean Corpuscular HGB Conc 34.3 g/dL (31.8-35.4); Mean Corpuscular Hemoglobin 31.2 pg (27.0-31.2); Mean Corpuscular Volume 90.8 fl (81-99); Mean Platelet Volume 8.4 fl (7.4-10.4); Monocytes # 0.6 K/mm3 (0.1-1.0); Monocytes % 6.1 % (1.7-9.3); Neutrophils # 8.1 K/mm3 (1.8-7.8); Neutrophils % 83.9 % (37.0-80.0); Platelet Count 189 K/mm3 (142-424); Red Blood Count 3.22 M/mm3 (4.20-5.40); Red Cell Distribution Width 13.7 % (11.5-17.5); White Blood Count 9.7 K/mm3 (4.8-10.8)
[2022-03-15 07:40] LABS: Alanine Aminotransferase 15 U/L (12-78); Albumin Level 3.3 g/dl (3.5-5.0); Albumin/Globulin Ratio 1.4 (1.1-1.8); Alkaline Phosphatase 81 U/L (38-126); Anion Gap 11.4 mEq/L (5-15); Aspartate Amino Transferase 32 U/L (14-36); Bilirubin,Total 0.8 mg/dl (0.2-1.3); Blood Urea Nitrogen 26 mg/dl (7-17); Carbon Dioxide 25 mmol/L (22.0-30.0); Chloride 100 mmol/L (98-107); Creatinine Clearance Estimated 39 mL/min (50-200); Estimated Glomerular Filt Rate 39 ml/min (>60); GFR (African American) 47 ML/MIN (>60); Globulin 2.3 g/dL (1.3-3.2); Glucose 197 mg/dl (74-100); Potassium 4.4 mmoL/L (3.5-5.1); Sodium 132 mmol/L (136-145); Total Protein,Serum 5.6 g/dl (6.3-8.2)
--- NOTE | 2022-03-15 10:12 | HMH.PTEV ---
Physical Therapy Evaluation Rehab PT IP Evaluation Start: 03/14/22 10:07 Freq: ONCE Status: Active Protocol: Document 03/15/22 09:20 PHORNE (Rec: 03/15/22 10:12 PHORNE [id number]) Subjective/History History History 81 yowf adm to [facility] with L hip fx, now S/P L hip MONSON with post approach requiring post hip prec. She reports she lives with spouse and son who both use a walker for ambulation, she is generally independent with all mobility without AD and has 7 steps to enter the home. Subjective Subjective She reports feeling anxious about getting up and mild pain in the L LE this am. Rehab PT IP Eval Objective Appearance Patient Behavior Appropriate Patient Orientation Person,Place,Time Difficulty following instructions none Speech Pattern Clear Ambulation Patient Able to Ambulate Yes Ambulation Observation IP General Gait Pattern Observation Antalgic Gait,Shuffling Step Ambulation Distance (feet) 3 Ambulation Assistive Device Rolling Walker Ambulation Ability Minimal x 1 (25% assist) Balance Ability to Arise Able, uses arms to help Sitting Balance Steady, safe Standing Balance Steady, wide stance Dynamic Sitting Balance Ability Good Dynamic Standing Balance Ability Good Transfers Bed Transfer Ability Minimal x 1 (25% assist) Chair Transfer Ability Minimal x 1 (25% assist) Sit to Stand Bed Transfer Ability Minimal x 1 (25% assist) Sit to Stand Chair Transfer Ability Minimal x 1 (25% assist) Rehab PT IP prob,goals,plan Problems Date of Evaluation: 03/15/22 PT IP Problems Bed Mobility,Transfers,Gait Rehab Potential Rehab Potential Good Equipment Needs Assistive Devices Rolling / Wheeled Walker Plan PT Intervention Plan Bed Mobility,Transfers,Gait, Self care,Therapeutic Exercise PT Plan Frequency BID Duration LOS Discharge Goals Bed Transfer Ability Contact Guard/Hand Hold Sit to Stand Chair Transfer Ability Contact Guard/Hand Hold Ambulation Assistive Device Rolling Walker Ambulation Distance (feet) 25 Discharge Plan PT Discharge Plan Pt is currently most appropriate for rehab placement once medically stable for d/c. G -code Required No
--- NOTE | 2022-03-15 10:15 | XR_ITS ---
PROCEDURE INFORMATION: Exam: XR Chest Exam date and time: 03/15/2022 10:42 AM Age: 81 years old Clinical indication: Cough and shortness of breath TECHNIQUE: Imaging protocol: Radiologic exam of the chest. Views: 1 view. COMPARISON: CR XR CHEST PORTABLE 03/14/2022 12:52 AM FINDINGS: Lungs: Unremarkable. No consolidation. Pleural spaces: Unremarkable. No pleural effusion. No pneumothorax. Heart/Mediastinum: Unremarkable. No cardiomegaly. Bones/joints: Unremarkable. IMPRESSION: No acute findings.
[2022-03-15 11:49] LABS: POC Glucose,Bedside 267 (70-110)
--- NOTE | 2022-03-15 13:22 | EXP.ACUTE.PN ---
Subjective *Date: 03/15/22 *Time: 13:22 Interval history: No issues overnight. Having some nausea. Medical Exam Vital signs and Labs for Last 24 Hours: Vital Signs Temp Pulse Pulse Resp BP Pulse Ox 03/15/22 10:56 99.7 F H 66 18 134/60 90 L 03/15/22 07:46 98.5 F 72 17 133/45 L 97 03/15/22 04:00 98 F 74 16 140/56 L 92 L 03/15/22 04:00 80 03/15/22 00:00 70 03/14/22 20:00 70 03/15/22 00:00 98.4 F 75 16 141/52 H 92 L 03/14/22 20:00 97.9 F 69 16 144/56 H 95 03/14/22 20:44 94 L 03/14/22 17:30 98.4 F 64 16 125/58 L 96 03/14/22 16:30 64 16 131/51 L 93 L 03/14/22 15:30 60 114/66 94 L 03/14/22 14:30 60 18 137/53 L 95 03/14/22 13:30 59 L 16 152/49 H 96 03/14/22 17:23 60 Intake and Output 03/14/22 03/15/22 03/15/22 23:59 07:59 15:59 Intake Total 440 / 440 Output Total 0 / 150 350 / 350 0 / 350 Balance 0 / 1150 90 / 90 0 / 90 Intake: Intake, Oral Amount 240 / 240 Intake, Total IV Amount 50 / 50 Clindamycin Phosphate/D5w 900 50 / 50 mg In 50 ml @ 100 mls/hr IV Q8H [facility] Rx#:[id number] Infusion Intake 150 / 150 Ringers Solution,Lactated 1,000 150 / 150 ml @ 75 mls/hr IV .[id number] [facility] Rx#:[id number] Output: Output, Urine Amount 0 / 100 350 / 350 0 / 350 Other: Number of Unmeasured Voids 0 0 0 Weight 73.9 kg 74.026 kg Patient Weight 03/15/22 23:59 Weight 74.026 kg Laboratory Results - last 24 hr 03/14/22 16:45: POC Glucose 170 H 03/14/22 20:24: POC Glucose 209 H 03/15/22 05:54: POC Glucose 226 H 03/15/22 06:40: WBC 9.7, RBC 3.22 L, Hgb 10.0 L D, Hct 29.2 L, MCV 90.8, MCH 31.2, MCHC 34.3, RDW 13.7, Plt Count 189, MPV 8.4, Neut % (Auto) 83.9 H, Lymph % (Auto) 7.8 L, [place] % (Auto) 6.1, Eos % (Auto) 2.0, Baso % (Auto) 0.1, Neut # (Auto) 8.1 H, Lymph # (Auto) 0.8, [place] # (Auto) 0.6, Eos # (Auto) 0.2, Baso # (Auto) 0.0 03/15/22 06:40: Sodium 132 L, Potassium 4.4, Chloride 100, Carbon Dioxide 25, Anion Gap 11.4, BUN 26 H D, Creatinine 1.30 H, Estimated Creat Clear 39, Estimated GFR 39 L, Est GFR ( Amer) 47 L, Glucose 197 H, Calcium 8.0 L, Phosphorus 4.0, Total Bilirubin 0.8, AST 32, ALT 15, Alkaline Phosphatase 81, Total Protein 5.6 L, Albumin 3.3 L D, Globulin 2.3, Albumin/Globulin Ratio 1.4 03/15/22 11:41: POC Glucose 267 H I & O for Labs for Last 24 Hours: Intake & Output 03/12/22 03/13/22 03/14/22 03/15/22 23:59 23:59 23:59 23:59 Intake Total 1300 / 1300 440 / 440 Output Total 1200 / 1200 150 / 150 350 / 350 Balance -1200 / -1200 1150 / 1150 90 / 90 Weight 73.936 kg 73.9 kg 74.026 kg Head: Present atraumatic Eyes: Present eye pain and other ENT: Present normal exam Comment:: Conjunctivitis Neck: Present normal inspection and trachea midline; Absent tenderness Respiratory: Present CTA bilaterally; Absent accessory muscle use Cardiac: Present Reg Rate and Rhythm and Regular Rate GI: Present soft; Absent distention Rectal (female): Present deferred (female): Present deferred Extremities: Present normal inspection; Absent tenderness Comment:: Surgical site Skin: Present intact; Absent erythema Assessment and Plan *Assessment and plan (1) CKD (chronic kidney disease) stage 2, GFR 60-89 ml/min: Status: Chronic Category: Medical Code(s): N18.2 - Chronic kidney disease, stage 2 (mild) (2) Coronary arteriosclerosis: Status: Chronic Category: Medical Code(s): I25.10 - Atherosclerotic heart disease of [place] coronary artery without angina pectoris (3) Diabetes: Status: Chronic Qualifiers: Diabetes mellitus type: type 2 Diabetes mellitus skilled nursing insulin use: with intermodal dispatcher use Diabetes mellitus complication status: without complication Qualified Code(s): E11.9 - Type 2 diabetes mellitus without complications; Z79.4 - termite renewal inspector (current) use of insulin Category: Medical
[2022-03-15 16:36] LABS: POC Glucose,Bedside 176 (70-110)
[2022-03-15 17:00] LABS: POC Glucose,Bedside 201 (70-110)
[2022-03-15 18:22] LABS: Coronavirus 19, PCR Not Detected (NotDetected); Influenza A, PCR Not Detected (NotDetected); Influenza B, PCR Not Detected (NotDetected)
[2022-03-15 21:01] LABS: POC Glucose,Bedside 192 (70-110)
[2022-03-16] VITALS (9 sets, daily range): BP systolic 119–150; BP diastolic 40–60; PULSE 65–80; RESP 16–18; TEMP 36.6–37.6; O2SAT 94–100; BMI 27.8
--- NOTE | 2022-03-16 02:08 | PC.NURSE ---
Pt. up with PT in a chair yesterday. Pain meds give once on my shift.
[2022-03-16 06:02] LABS: POC Glucose,Bedside 192 (70-110)
[2022-03-16 07:14] LABS: Basophils % 0.3 % (0.1-2.0); Eosinophils % 1.6 % (0.1-12.0); Hematocrit 24.4 % (37.0-47.0); Lymphocytes % 10.7 % (10-50); Mean Corpuscular HGB Conc 36.7 g/dL (31.8-35.4); Mean Corpuscular Hemoglobin 33.4 pg (27.0-31.2); Mean Corpuscular Volume 91.2 fl (81-99); Mean Platelet Volume 8.6 fl (7.4-10.4); Neutrophils % 80.4 % (37.0-80.0); Platelet Count 164 K/mm3 (142-424); Red Blood Count 2.67 M/mm3 (4.20-5.40); Red Cell Distribution Width 13.5 % (11.5-17.5); White Blood Count 8.6 K/mm3 (4.8-10.8)
[2022-03-16 07:15] LABS: Eosinophils # 0.1 K/mm3 (0.0-0.4); Lymphocytes # 0.9 K/mm3 (0.7-4.5); Monocytes # 0.6 K/mm3 (0.1-1.0); Neutrophils # 6.9 K/mm3 (1.8-7.8)
[2022-03-16 07:23] LABS: Alanine Aminotransferase 18 U/L (12-78); Albumin/Globulin Ratio 1.3 (1.1-1.8); Alkaline Phosphatase 98 U/L (38-126); Anion Gap 8.4 mEq/L (5-15); Aspartate Amino Transferase 36 U/L (14-36); Bilirubin,Total 0.7 mg/dl (0.2-1.3); Blood Urea Nitrogen 22 mg/dl (7-17); Calcium 8.1 mg/dl (8.4-10.2); Carbon Dioxide 26 mmol/L (22.0-30.0); Chloride 100 mmol/L (98-107); Creatinine Clearance Estimated 42 mL/min (50-200); Estimated Glomerular Filt Rate 43 ml/min (>60); GFR (African American) 52 ML/MIN (>60); Globulin 2.3 g/dL (1.3-3.2); Glucose 182 mg/dl (74-100); Magnesium 1.7 mg/dl (1.6-2.3); Phosphorous 2.9 mg/dl (2.5-4.5); Potassium 4.4 mmoL/L (3.5-5.1); Sodium 130 mmol/L (136-145); Total Protein,Serum 5.3 g/dl (6.3-8.2)
[2022-03-16 07:30] LABS: Hemoglobin 8.9 g/dL (12.2-16.2)
--- NOTE | 2022-03-16 09:48 | EXP.ORTH.PN ---
Subjective *Date: 03/16/22 *Time: 09:51 Interval history: Ms. Smtih is an 81 year old female patient status post left hip cemented hemiarthroplasty performed by Dr. Shaw. This morning the patient is sitting up comfortably at the edge of the bed and physical therapy is present at the bedside. She reports left hip pain as to be expected but states that it is well controlled with as needed pain medication and rest. She reports that she has been ambulating over the weekend with the use of a walker and this is going well. She denies any other symptoms or concerns at this time. Ortho Exam (Inpt) Vital signs and Labs for Last 24 Hours: Temp Pulse Resp BP Pulse Ox 99.6 F 76 18 119/40 L 97 03/16/22 07:45 03/16/22 07:45 03/16/22 07:45 03/16/22 07:45 03/16/22 07:45 Laboratory Results - last 24 hr 03/14/22 10:03: POC Glucose 201 H 03/15/22 11:41: POC Glucose 267 H 03/15/22 16:29: POC Glucose 176 H 03/15/22 18:10: SARS-CoV-2 (PCR) Not detected, Influenza A Untype (PCR) Not detected, Influenza Type B (PCR) Not detected 03/15/22 20:52: POC Glucose 192 H 03/16/22 05:55: POC Glucose 192 H 03/16/22 06:30: WBC 8.6, RBC 2.67 L, Hgb 8.9 L D, Hct 24.4 L, MCV 91.2, MCH 33.4 H, MCHC 36.7 H, RDW 13.5, Plt Count 164, MPV 8.6, Neut % (Auto) 80.4 H, Lymph % (Auto) 10.7, [place] % (Auto) 7.0, Eos % (Auto) 1.6, Baso % (Auto) 0.3, Neut # (Auto) 6.9, Lymph # (Auto) 0.9, [place] # (Auto) 0.6, Eos # (Auto) 0.1, Baso # (Auto) 0.0 03/16/22 06:30: Sodium 130 L, Potassium 4.4, Chloride 100, Carbon Dioxide 26, Anion Gap 8.4, BUN 22 H, Creatinine 1.20 H, Estimated Creat Clear 42, Estimated GFR 43 L, Est GFR ( Amer) 52 L, Glucose 182 H, Calcium 8.1 L, Phosphorus 2.9 D, Magnesium 1.7 D, Total Bilirubin 0.7, AST 36, ALT 18, Alkaline Phosphatase 98, Total Protein 5.3 L, Albumin 3.0 L, Globulin 2.3, Albumin/Globulin Ratio 1.3 I & O for Labs for Last 24 Hours: Intake & Output 03/13/22 03/14/22 03/15/22 03/16/22 23:59 23:59 23:59 23:59 Intake Total 1300 / 1300 440 / 440 360 / 360 Output Total 1200 / 1200 150 / 150 850 / 850 900 / 900 Balance -1200 / -1200 1150 / 1150 -410 / -410 -540 / -540 Weight 163 lb 162 lb 14.746 oz 163 lb 3.19 oz 163 lb 3.19 oz Head: Present normocephalic and atraumatic Eyes: Present as per HPI ENT: Present normal exam Neck: Present normal inspection, full ROM and trachea midline; Absent lymphadenopathy Respiratory: Present normal respiratory effort, able to speak in complete sentences and symmetric chest movement; Absent accessory muscle use Cardiac: Present Reg Rate and Rhythm GI: Present soft; Absent tenderness Comment:: Upon examination of the lower extremities: The limb lengths are grossly equal. Dressings present of the left hip are clean, dry, and intact. Attempted movements of the left hip are somewhat painful. Thigh and calf are soft nontender; Homans' sign is negative. No clinical evidence of DVT noted. Posterior tibial pulse 1+; capillary fill is brisk. Sensation to light touch is grossly intact throughout. Patient is active mobilizing the foot, ankle, and toes. Skin: Present intact, warm and normal turgor; Absent cyanosis, erythema, lesions or jaundice Neuro: Present Cranial Nerve 2-12 Intact, Motor Function Intact, Sensory Function Intact, alert, awake, oriented x 3, tone normal and moves all extremities; Absent Numbness or Tingling Assessment and Plan *Assessment and plan (1) Hip fracture: Status: Acute Category: Medical Code(s): S72.009A - Fracture of unspecified part of neck of unspecified femur, initial encounter for closed fracture Plan 81-year-old female status post left cemented hip hemiarthroplasty. Overall she is doing well this morning from an orthopedic standpoint. Continue PT/OT and standard posterior hip precautions; weightbearing as tolerated on the left lower extremity. Continue 23 hours antibiotics. DVT prophylaxis with Xarelto 10 mg daily for 5 weeks postoperatively. Upon discharg
--- NOTE | 2022-03-16 10:53 | HMH.OTEV ---
OT Inpatient Evaluation Rehab OT IP Evaluation Start: 03/14/22 10:07 Freq: ONCE Status: Active Protocol: Document 03/16/22 10:47 [facility] (Rec: 03/16/22 10:53 [facility] [id number]) Rehab OT IP Assessment Subjective History Pt was admitted on 03/13/22 due to a fall with a left femur fx . Pt required a Cemented left hip hemiarthroplasty on . Prior to being in the hosptial, pt reports she lived at home with her and son. Pt's and son requires assistance from her in their daily needs. Normally, pt is independent with all ADLs and IADLs. She still drives and completes all grocery shopping independently. Pt does not use any type of AE during ambulation or daily activities . Pt has a past medical history of: Abnormal EKG Blurry vision Difficulty with speech Dizziness Sinus bradycardia TIA (transient ischemic attack ) Subjective I do feel sick to my stomach. Objective Patient Orientation Person,Place,Birthday,Year Upper Extremity Gross ROM WFL Bed Mobility bed mobility-scooting,bed mobility - supine/sit,bed mobility - rolling Assist Level Moderate x 2 (50% assist) Transfer Training Sit/Stand/Step Transfer Assist Level Minimal x 1 (25% assist) Chair Transfer Ability Minimal x 1 (25% assist) Chair Transfer Technique Sit to/from Ambulatory Chair Transfer Assistive Devices Rolling Walker Rehab OT IP prob,goals,plan Problems Date of Evaluation: 03/16/22 OT IP Problems Bed Mobility,Transfers,Balance ,Self care,Safety Rehab Potential Rehab Potential Good Equipment Needs Assistive Devices Rolling / Wheeled Walker Plan OT intervention Plan Bed Mobility,Transfers,Balance ,Self care,Safety,Therapeutic Exercise OT Plan Frequenc
--- NOTE | 2022-03-16 11:51 | SW/DCPLANNER ---
Addendum entered by Miranda Forde 03/17/22 08:40: This patient has been approved for [facility] SNF level of care today. COVID swab will need to be collected prior to discharge. I will update patient and family. Addendum entered by Miranda Forde 03/16/22 12:41: Patient has changed her mind and prefers to discharge to [facility]. Paula jackson/ [facility] stated that she switch the precert and will do that today. Original Note: I spoke with this patient regarding plans once medically stable for discharge. PT/OT has recommended SNF level of care at time of discharge. Patient is agreeable to SNF level of care and prefers [facility] or [facility]. Maira jackson/ [facility] stated that she is able to accept this patient and precert has been started. Patient is medically stable for discharge once approved for SNF level of care.
[2022-03-16 12:30] LABS: POC Glucose,Bedside 217 (70-110)
--- NOTE | 2022-03-16 15:16 | EXP.ACUTE.PN ---
Subjective *Date: 03/16/22 *Time: 15:16 Interval history: No issues overnight. Patient feels better this morning, pain controlled. No bowel movement. Medical Exam Vital signs and Labs for Last 24 Hours: Vital Signs Temp Pulse Pulse Resp BP Pulse Ox 03/16/22 11:28 98.3 F 67 18 120/60 100 03/16/22 07:45 99.6 F 76 18 119/40 L 97 03/16/22 04:00 98.2 F 78 17 136/45 L 94 L 03/16/22 04:00 70 03/16/22 00:00 80 03/16/22 00:00 98 F 80 16 150/52 H 94 L 03/15/22 20:00 98.7 F 88 17 160/49 H 91 L 03/15/22 20:00 90 03/15/22 20:37 94 L Intake and Output 03/15/22 03/16/22 03/16/22 23:59 07:59 15:59 Intake Total 360 / 720 360 / 720 Output Total 0 / 850 900 / 900 0 / 900 Balance 0 / -410 -540 / -180 360 / -180 Intake: Intake, Oral Amount 360 / 720 360 / 720 Output: Output, Urine Amount 0 / 850 900 / 900 0 / 900 Other: Number of Unmeasured Voids 0 0 0 Weight 74.026 kg 74.026 kg Patient Weight 03/16/22 23:59 Weight 74.026 kg Laboratory Results - last 24 hr 03/14/22 10:03: POC Glucose 201 H 03/15/22 16:29: POC Glucose 176 H 03/15/22 18:10: SARS-CoV-2 (PCR) Not detected, Influenza A Untype (PCR) Not detected, Influenza Type B (PCR) Not detected 03/15/22 20:52: POC Glucose 192 H 03/16/22 05:55: POC Glucose 192 H 03/16/22 06:30: WBC 8.6, RBC 2.67 L, Hgb 8.9 L D, Hct 24.4 L, MCV 91.2, MCH 33.4 H, MCHC 36.7 H, RDW 13.5, Plt Count 164, MPV 8.6, Neut % (Auto) 80.4 H, Lymph % (Auto) 10.7, Ashley % (Auto) 7.0, Eos % (Auto) 1.6, Baso % (Auto) 0.3, Neut # (Auto) 6.9, Lymph # (Auto) 0.9, Ashley # (Auto) 0.6, Eos # (Auto) 0.1, Baso # (Auto) 0.0 03/16/22 06:30: Sodium 130 L, Potassium 4.4, Chloride 100, Carbon Dioxide 26, Anion Gap 8.4, BUN 22 H, Creatinine 1.20 H, Estimated Creat Clear 42, Estimated GFR 43 L, Est GFR ( Amer) 52 L, Glucose 182 H, Calcium 8.1 L, Phosphorus 2.9 D, Magnesium 1.7 D, Total Bilirubin 0.7, AST 36, ALT 18, Alkaline Phosphatase 98, Total Protein 5.3 L, Albumin 3.0 L, Globulin 2.3, Albumin/Globulin Ratio 1.3 03/16/22 11:15: POC Glucose 217 H I & O for Labs for Last 24 Hours: Intake & Output 03/13/22 03/14/22 03/15/22 03/16/22 23:59 23:59 23:59 23:59 Intake Total 1300 / 1300 440 / 440 720 / 720 Output Total 1200 / 1200 150 / 150 850 / 850 900 / 900 Balance -1200 / -1200 1150 / 1150 -410 / -410 -180 / -180 Weight 73.936 kg 73.9 kg 74.026 kg 74.026 kg Head: Present atraumatic Eyes: Present eye pain and other ENT: Present normal exam Comment:: Conjunctivitis Neck: Present normal inspection and trachea midline; Absent tenderness Respiratory: Present CTA bilaterally; Absent accessory muscle use Cardiac: Present Reg Rate and Rhythm and Regular Rate GI: Present soft; Absent distention Rectal (female): Present deferred (female): Present deferred Extremities: Present normal inspection; Absent tenderness Comment:: Surgical site Skin: Present intact; Absent erythema Assessment and Plan *Assessment and plan (1) CKD (chronic kidney disease) stage 2, GFR 60-89 ml/min: Status: Chronic Category: Medical Code(s): N18.2 - Chronic kidney disease, stage 2 (mild) (2) Coronary arteriosclerosis: Status: Chronic Category: Medical Code(s): I25.10 - Atherosclerotic heart disease of [place] coronary artery without angina pectoris (3) Diabetes: Status: Chronic Qualifiers: Diabetes mellitus type: type 2 Diabetes mellitus chcf insulin use: with chcf use Diabetes mellitus complication status: without complication Qualified Code(s): E11.9 - Type 2 diabetes mellitus without complications; Z79.4 - long-term (current) use of insulin Category: Medical Code(s): E11.9 - Type 2 diabetes mellitus without complications (4) Hip fracture: Status: Acute Category: Medical Code(s): S72.009A - Fracture of unspecified part of neck of unspecified femur, initia
[2022-03-16 16:52] LABS: POC Glucose,Bedside 183 (70-110)
--- NOTE | 2022-03-16 18:39 | PC.NURSE ---
PT HAS BEEN WELL THIS SHIFT. C/O PAIN X1, AND NAUSEA TREATED PER MAR WITH RELIEF. DSG TO LT HIP CDI. JAQUEZ IN PLACE WITH ADEQUATE UOPPT IS WAITING FOR PLACEMENT AT [facility]. CB AND PERSONAL ITEMS WITHIN REACH.
[2022-03-16 21:01] LABS: POC Glucose,Bedside 177 (70-110)
[2022-03-17] VITALS (8 sets, daily range): BP systolic 126–160; BP diastolic 33–58; PULSE 60–64; RESP 18–20; TEMP 36.4–36.9; O2SAT 95–99; BMI 26.7
--- NOTE | 2022-03-17 02:49 | PC.NURSE ---
Pt laying in bed resting at this time, has been A/O X 4, resp even and non labored, lungs clear. Pt has been on 2 L 02, IV is patent. Pt has wedge between legs, had reported some discomfort in legs and back, patient repositioned. Educated on medications and plan of care. Pt is going to [facility] at discharge. Pt encouraged to report any needs. Bed locked in low position, side rails up x 2, call light in reach.
--- NOTE | 2022-03-17 03:28 | PC.NURSE ---
PATIENT WEIGHED WITH ABDUCTION PILLOW .
[2022-03-17 05:19] LABS: POC Glucose,Bedside 175 (70-110)
--- NOTE | 2022-03-17 07:27 | EXP.ORTH.PN ---
Subjective *Date: 03/17/22 *Time: 07:05 Interval history: Ms. Smith is an 81 year old female patient status post left hip cemented hemiarthroplasty performed by Dr. Shaw. Today the patient is postop day #3. This morning the patient is lying comfortably in bed. She reports left hip pain as to be expected but states that it is well controlled with as needed pain medication and rest. She reports that she has been ambulating with the use of a walker and this is going well. She denies any other symptoms or concerns at this time. Ortho Exam (Inpt) Vital signs and Labs for Last 24 Hours: Temp Pulse Resp BP Pulse Ox 98.5 F 60 18 126/50 L 99 03/17/22 03:22 03/17/22 04:53 03/17/22 03:22 03/17/22 04:07 03/17/22 03:22 Laboratory Results - last 24 hr 03/16/22 06:30: Hgb 8.9 L D 03/16/22 06:30: Sodium 130 L, Potassium 4.4, Chloride 100, Carbon Dioxide 26, Anion Gap 8.4, BUN 22 H, Creatinine 1.20 H, Estimated Creat Clear 42, Estimated GFR 43 L, Est GFR ( Amer) 52 L, Glucose 182 H, Calcium 8.1 L, Phosphorus 2.9 D, Magnesium 1.7 D, Total Bilirubin 0.7, AST 36, ALT 18, Alkaline Phosphatase 98, Total Protein 5.3 L, Albumin 3.0 L, Globulin 2.3, Albumin/Globulin Ratio 1.3 03/16/22 11:15: POC Glucose 217 H 03/16/22 16:45: POC Glucose 183 H 03/16/22 20:49: POC Glucose 177 H 03/17/22 05:06: POC Glucose 175 H I & O for Labs for Last 24 Hours: Intake & Output 03/14/22 03/15/22 03/16/22 03/17/22 23:59 23:59 23:59 23:59 Intake Total 1300 / 1300 440 / 440 1080 / 1080 Output Total 150 / 150 850 / 850 1625 / 1625 1200 / 1200 Balance 1150 / 1150 -410 / -410 -545 / -545 -1200 / -1200 Weight 162 lb 14.746 oz 163 lb 3.19 oz 163 lb 3.19 oz 156 lb 8 oz Head: Present normocephalic and atraumatic Eyes: Present as per HPI ENT: Present normal exam Neck: Present normal inspection, full ROM and trachea midline; Absent lymphadenopathy Respiratory: Present normal respiratory effort, able to speak in complete sentences and symmetric chest movement; Absent accessory muscle use Cardiac: Present Reg Rate and Rhythm GI: Present soft; Absent tenderness Comment:: Upon examination of the lower extremities: The limb lengths are grossly equal. Dressings present over the left hip are clean, dry, and intact. Attempted movements of the left hip are somewhat painful. Thigh and calf are soft nontender; Homans' sign is negative. No clinical evidence of DVT noted. Posterior tibial pulse 1+; capillary fill is brisk. Sensation to light touch is grossly intact throughout. Patient is actively mobilizing the foot, ankle, and toes. Skin: Present intact, warm and normal turgor; Absent cyanosis, erythema, lesions or jaundice Neuro: Present Cranial Nerve 2-12 Intact, Motor Function Intact, Sensory Function Intact, alert, awake, oriented x 3, tone normal and moves all extremities; Absent Numbness or Tingling Assessment and Plan *Assessment and plan (1) Hip fracture: Status: Acute Category: Medical Code(s): S72.009A - Fracture of unspecified part of neck of unspecified femur, initial encounter for closed fracture Plan 81-year-old female status post left cemented hip hemiarthroplasty. Overall she is doing well this morning from an orthopedic standpoint and may be discharged when medically appropriate. Continue PT/OT and standard posterior hip precautions; weightbearing as tolerated on the left lower extremity. DVT prophylaxis with Xarelto 10 mg daily for 5 weeks postoperatively. Upon discharge, plan for follow-up in clinic in 2 weeks for wound check and radiographs.
[2022-03-17 07:28] LABS: Alanine Aminotransferase 21 U/L (12-78); Albumin Level 3.2 g/dl (3.5-5.0); Albumin/Globulin Ratio 1.2 (1.1-1.8); Alkaline Phosphatase 128 U/L (38-126); Anion Gap 10.5 mEq/L (5-15); Aspartate Amino Transferase 33 U/L (14-36); Bilirubin,Total 0.6 mg/dl (0.2-1.3); Blood Urea Nitrogen 22 mg/dl (7-17); Calcium 8.5 mg/dl (8.4-10.2); Carbon Dioxide 28 mmol/L (22.0-30.0); Chloride 97 mmol/L (98-107); Creatinine Clearance Estimated 41 mL/min (50-200); Estimated Glomerular Filt Rate 43 ml/min (>60); GFR (African American) 52 ML/MIN (>60); Globulin 2.6 g/dL (1.3-3.2); Glucose 166 mg/dl (74-100); Phosphorous 3.2 mg/dl (2.5-4.5); Potassium 4.5 mmoL/L (3.5-5.1); Sodium 131 mmol/L (136-145); Total Protein,Serum 5.8 g/dl (6.3-8.2)
[2022-03-17 07:30] LABS: Basophils % 0.3 % (0.1-2.0); Eosinophils # 0.2 K/mm3 (0.0-0.4); Eosinophils % 2.7 % (0.1-12.0); Hematocrit 25.8 % (37.0-47.0); Lymphocytes # 0.9 K/mm3 (0.7-4.5); Lymphocytes % 12.4 % (10-50); Mean Corpuscular HGB Conc 34.8 g/dL (31.8-35.4); Mean Corpuscular Hemoglobin 31.1 pg (27.0-31.2); Mean Corpuscular Volume 89.4 fl (81-99); Mean Platelet Volume 9.5 fl (7.4-10.4); Monocytes # 0.5 K/mm3 (0.1-1.0); Monocytes % 6.7 % (1.7-9.3); Neutrophils # 5.6 K/mm3 (1.8-7.8); Neutrophils % 77.8 % (37.0-80.0); Platelet Count 186 K/mm3 (142-424); Red Blood Count 2.88 M/mm3 (4.20-5.40); Red Cell Distribution Width 13.5 % (11.5-17.5); White Blood Count 7.2 K/mm3 (4.8-10.8)
[2022-03-17 08:20] LABS: Magnesium 1.7 mg/dl (1.6-2.3)
--- NOTE | 2022-03-17 11:30 | EXP.DC.SUM ---
General Admission date:: 03/13/22 Discharge date: 03/17/22 HPI HPI HPI: 81-year-old female with extensive medical history who presents as a transfer from [facility] due to a fall to ground level while standing in line at [facility]. Patient does not remember any preceding events but spontaneously fell and landing on her hip breaking her left femur. Did not lose consciousness. Did not hit her head does not have any infectious symptoms or urinary tract infection symptoms. Patient was transferred for orthopedic evaluation at [facility]. Currently she is anxious and in significant pain due to her hip. She has no other complaint at this time. Discussed going to the OR in the morning and symptomatic management. Patient is agreeable understands. Hospital Course Hospital Course Hospital Course: 81-year-old female multiple medical problems including CKD, diabetes, coronary artery disease who presented for an orthopedic evaluation after a ground-level fall resulting in left femoral head fracture. Status post operative repair 03/14/22. Overall is done well, ready for discharge to therapy for continued postop care. Problems addressed as follows: Left femoral neck fracture -Fall while standing in line at [facility]. Presented as a transfer from [facility]. Orthopedics was consulted. Operative repair on 03/14 with a left cemented hip hemiarthroplasty without any complications. Pain control with oral medications, tolerating opiates 2-3 times a day at most. Working with therapy. Medically stable for discharge to fdc for therapy. We will continue Xarelto 10mg daily for DVT prophylaxis for the next 5 weeks. Continue PT/OT and standard posterior hip precautions; weightbearing as tolerated on the left lower extremity. Plan for follow-up in clinic in 2 weeks for wound check and radiographs. Constipation -treated with MiraLAX, senna. Enema on day of DC. Coronary artery disease - Continued Coreg, aspirin. Acute kidney injury, resolved -IV fluids, likely prerenal due to surgery. resolved with monitoring and fluid repletion. Acute blood loss anemia -Stable, monitored during admission. Hypertension - Continued home Coreg. Needs monitoring at her nursing facility for the potential to resume previous medications. Diabetes - Sliding scale insulin during admission. resume home regimen at [facility]. Recommended repeat labs in 1 week to monitor CBC and BMP. Follow-up with orthopedics in 2 weeks as above. Controlled prescription sent electronically to [facility]. Medically stable for discharge Exam Data for Last 24 hours Vital signs and Labs for Last 24 Hours: Temp Pulse Resp BP Pulse Ox 98.5 F 60 20 138/44 L 99 03/17/22 08:00 03/17/22 08:00 03/17/22 08:00 03/17/22 08:00 03/17/22 08:00 Laboratory Results - last 24 hr 03/16/22 11:15: POC Glucose 217 H 03/16/22 16:45: POC Glucose 183 H 03/16/22 20:49: POC Glucose 177 H 03/17/22 05:06: POC Glucose 175 H 03/17/22 06:28: WBC 7.2, RBC 2.88 L, Hgb 9.0 L, Hct 25.8 L, MCV 89.4, MCH 31.1, MCHC 34.8, RDW 13.5, Plt Count 186, MPV 9.5, Neut % (Auto) 77.8, Lymph % (Auto) 12.4, Bartholomew % (Auto) 6.7, Eos % (Auto) 2.7, Baso % (Auto) 0.3, Neut # (Auto) 5.6, Lymph # (Auto) 0.9, Bartholomew # (Auto) 0.5, Eos # (Auto) 0.2, Baso # (Auto) 0.0 03/17/22 06:48: Sodium 131 L, Potassium 4.5, Chloride 97 L, Carbon Dioxide 28, Anion Gap 10.5, BUN 22 H, Creatinine 1.20 H, Estimated Creat Clear 41, Estimated GFR 43 L, Est GFR ( Amer) 52 L, Glucose 166 H, Calcium 8.5, Phosphorus 3.2, Total Bilirubin 0.6, AST 33, ALT 21, Alkaline Phosphatase 128 H, Total Protein 5.8 L, Albumin 3.2 L, Globulin 2.6, Albumin/Globulin Ratio 1.2 03/17/22 06:48: Magnesium 1.7 I & O for Last 24 hours: Intake & Output 03/14/22 03/15/22 03/16/22 03/17/22 23:59 23:59 23:59 23:59 Intake Total 1300 / 1300 440 / 440 1080 / 1080 Output Total 150 / 150 850 / 850 1625 / 1625 1200 / 1200 Balance 115
[2022-03-17 12:05] LABS: POC Glucose,Bedside 260 (70-110)
--- NOTE | 2022-03-17 12:23 | PC.NURSE ---
Current Medications Carvedilol (Carvedilol 12.5mg Tablet) 12.5 mg PO BID [facility] Stop: 04/12/22 20:59 Last Admin: 03/17/22 08:11 Dose: 12.5 mg Docusate Sodium (Docusate Sodium 100 Mg Capsule) 100 mg PO BID [facility] Stop: 04/16/22 08:59 Last Admin: 03/17/22 11:21 Dose: 100 mg Hydromorphone HCl (Hydromorphone 2mg/Ml Syringe) 1 mg IV Q4HP PRN PRN Reason: Breakthru Severe Pain Stop: 04/12/22 17:49 Last Admin: 03/14/22 05:12 Dose: 1 mg Insulin Human Lispro (Humalog 100 Units/Ml 3ml Vial ([facility])) 0 unit SQ [facility]; Protocol Stop: 04/13/22 16:29 Last Admin: 03/17/22 12:04 Dose: 100 unit Levothyroxine Sodium (Levothyroxine 100mcg (0.1mg) Tab) [facility] Stop: 04/13/22 08:59 Last Admin: 03/17/22 06:01 Dose: 100 mcg Neomycin/Polymyxin/Dexamethasone (Wuvnfc-Jsodi-Iphvnwat Ophth Oint 3.5gm) 0 gm OP QID [facility] Stop: 04/13/22 14:44 Last Admin: 03/17/22 08:12 Dose: Not Given Nitroglycerin (Nitroglycerin 0.4mg Sl Tablet) 0.4 mg SL Q5MINP PRN PRN Reason: chest pain Ondansetron HCl (Ondansetron 4mg/2ml Vial) 4 mg IV Q8HP PRN PRN Reason: Nausea Stop: 04/13/22 06:43 Last Admin: 03/17/22 11:11 Dose: 4 mg Oxycodone HCl (Oxycodone 5mg Immediate Release Tablet) 5 mg PO Q6HP PRN PRN Reason: Breakthru Severe Pain Stop: 04/13/22 10:06 Last Admin: 03/15/22 20:29 Dose: 5 mg Oxycodone/Acetaminophen (Oxycodone 10mg W/Apap 325mg Tablet) 1 each PO Q6HP PRN PRN Reason: Moderate Pain Stop: 04/12/22 17:49 Last Admin: 03/17/22 11:17 Dose: 1 each Pantoprazole Sodium (Pantoprazole 40mg Tablet) 40 mg PO HS [facility] Stop: 04/13/22 20:59 Last Admin: 03/16/22 20:51 Dose: Not Given Polyethylene Glycol (Polyethylene Glycol 3350 238gm Powder) 17 gm PO DAILYP PRN PRN Reason: Constipation Stop: 04/12/22 21:26 Promethazine HCl (Promethazine Hcl 25mg/Ml 1ml Vial) 6.25 mg IV Q6HP PRN PRN Reason: Nausea And Vomiting Stop: 04/13/22 11:28 Last Admin: 03/15/22 10:19 Dose: 6.25 mg Rivaroxaban (Rivaroxaban 10mg Tablet) 10 mg PO QPMWITHMEAL [facility] Stop: 04/12/22 17:29 Last Admin: 03/16/22 17:01 Dose: 10 mg Sennosides (Senna 8.6mg Tablet) 8.6 mg PO DAILY [facility] Stop: 04/15/22 09:59 Last Admin: 03/17/22 08:11 Dose: 8.6 mg Sodium Chloride (Sodium Chloride 0.9% 10ml Flush Syringe) 10 ml IV NEEDED PRN PRN Reason: Maintain IV Site Stop: 04/13/22 10:06 Sodium Chloride (Sodium Chloride 0.9% 25ml Bag) 25 ml IV Q6HP PRN PRN Reason: to Dilute Promethazine inj Stop: 04/13/22 11:29 Last Admin: 03/15/22 10:19 Dose: 25 ml
--- NOTE | 2022-03-17 13:29 | PC.NURSE ---
Current Medications Carvedilol (Carvedilol 12.5mg Tablet) 12.5 mg PO BID [facility] Stop: 04/12/22 20:59 Last Admin: 03/17/22 08:11 Dose: 12.5 mg Docusate Sodium (Docusate Sodium 100 Mg Capsule) 100 mg PO BID [facility] Stop: 04/16/22 08:59 Last Admin: 03/17/22 11:21 Dose: 100 mg Hydromorphone HCl (Hydromorphone 2mg/Ml Syringe) 1 mg IV Q4HP PRN PRN Reason: Breakthru Severe Pain Stop: 04/12/22 17:49 Last Admin: 03/14/22 05:12 Dose: 1 mg Insulin Human Lispro (Humalog 100 Units/Ml 3ml Vial ([facility])) 0 unit SQ [facility]; Protocol Stop: 04/13/22 16:29 Last Admin: 03/17/22 12:04 Dose: 100 unit Levothyroxine Sodium (Levothyroxine 100mcg (0.1mg) Tab) 100 [facility]cg [facility] [place] Stop: 04/13/22 08:59 Last Admin: 03/17/22 06:01 Dose: 100 mcg Neomycin/Polymyxin/Dexamethasone (Lsgxzz-Rlcnb-Eocmczov Ophth Oint 3.5gm) 0 gm OP QID [facility] Stop: 04/13/22 14:44 Last Admin: 03/17/22 08:12 Dose: Not Given Nitroglycerin (Nitroglycerin 0.4mg Sl Tablet) 0.4 mg SL Q5MINP PRN PRN Reason: chest pain Ondansetron HCl (Ondansetron 4mg/2ml Vial) 4 mg IV Q8HP PRN PRN Reason: Nausea Stop: 04/13/22 06:43 Last Admin: 03/17/22 11:11 Dose: 4 mg Oxycodone HCl (Oxycodone 5mg Immediate Release Tablet) 5 mg PO Q6HP PRN PRN Reason: Breakthru Severe Pain Stop: 04/13/22 10:06 Last Admin: 03/15/22 20:29 Dose: 5 mg Oxycodone/Acetaminophen (Oxycodone 10mg W/Apap 325mg Tablet) 1 each PO Q6HP PRN PRN Reason: Moderate Pain Stop: 04/12/22 17:49 Last Admin: 03/17/22 11:17 Dose: 1 each Pantoprazole Sodium (Pantoprazole 40mg Tablet) 40 mg PO HS [facility] Stop: 04/13/22 20:59 Last Admin: 03/16/22 20:51 Dose: Not Given Polyethylene Glycol (Polyethylene Glycol 3350 238gm Powder) 17 gm PO DAILYP PRN PRN Reason: Constipation Stop: 04/12/22 21:26 Promethazine HCl (Promethazine Hcl 25mg/Ml 1ml Vial) 6.25 mg IV Q6HP PRN PRN Reason: Nausea And Vomiting Stop: 04/13/22 11:28 Last Admin: 03/15/22 10:19 Dose: 6.25 mg Rivaroxaban (Rivaroxaban 10mg Tablet) 10 mg PO QPMWITHMEAL KIRK Stop: 04/12/22 17:29 Last Admin: 03/16/22 17:01 Dose: 10 mg Sennosides (Senna 8.6mg Tablet) 8.6 mg PO DAILY [facility] Stop: 04/15/22 09:59 Last Admin: 03/17/22 08:11 Dose: 8.6 mg Sodium Chloride (Sodium Chloride 0.9% 10ml Flush Syringe) 10 ml IV NEEDED PRN PRN Reason: Maintain IV Site Stop: 04/13/22 10:06 Sodium Chloride (Sodium Chloride 0.9% 25ml Bag) 25 ml IV Q6HP PRN PRN Reason: to Dilute Promethazine inj Stop: 04/13/22 11:29 Last Admin: 03/15/22 10:19 Dose: 25 ml
--- NOTE | 2022-03-17 14:08 | PC.NURSE ---
still waiting on pt to have a bm before dc to snf.
--- NOTE | 2022-03-17 15:24 | PC.NURSE ---
pt had small bm. tried to call [facility] for report and th nurse stated there wasnt anyone to take it at this time. gave my number an ext and told them to call back in 30 mins.
[2022-03-17 16:53] LABS: POC Glucose,Bedside 167 (70-110)
--- NOTE | 2022-03-18 14:16 | CARE MANAGER ---
Spoke with nurse at [facility] for post discharge phone interview, she states that patient is doing well and no issues at this time.
[2022-03-22 09:28] VITALS: BP 144/64; PULSE 61; TEMP 36.6
--- NOTE | 2022-03-22 09:28 | EXP.ANES.II ---
[facility] Anesthesia Record Part II Anesthesia Record Part II Discharge Time: 10:32 Destination: Second Floor PACU nurse assessment reviewed?: Yes Patient Condition:: Good Anesthesia Complications:: None Swallowing reflex intact?: Yes Cyanosis?: No Blood Pressure: 144/64 Pulse Rate: 61 Temperature: 97.9 F Mental Status: Alert & Oriented Pain level:: 0 Nausea and/or vomitting:: None Intake, IV Amount: 0
== END 2022-03-17 16:24 | DRG 522 ==
LOC: OB 03-14 00:14 → 2ND 03-14 10:18
PROVIDERS: Nurse Practitioner Family; Orthopaedic Surgery; Student in an Organized Health Care Education/Training Program; Admitting Provider Internal Medicine Adolescent Medicine; PCP Family Medicine; Visit Provider Internal Medicine Adolescent Medicine
PROC: 0SRS0J9 Replacement of Left Hip Joint, Femoral Surface with Synthetic Substitute, Cemented, Open Approach (ICD-10-PCS; principal; 2022-03-14 07:30)
DX: S72.092A Other fracture of head and neck of left femur, initial encounter for closed fracture (principal); N17.9 Acute kidney failure, unspecified; E87.1 Hypo-osmolality and hyponatremia; N18.2 Chronic kidney disease, stage 2 (mild); I25.10 Atherosclerotic heart disease of native coronary artery without angina pectoris; W01.0XXA Fall on same level from slipping, tripping and stumbling without subsequent striking against object, initial encounter; Y92.512 Supermarket, store or market as the place of occurrence of the external cause; E11.22 Type 2 diabetes mellitus with diabetic chronic kidney disease; Z86.73 Personal history of transient ischemic attack (TIA), and cerebral infarction without residual deficits; Z79.4 Long term (current) use of insulin; D50.0 Iron deficiency anemia secondary to blood loss (chronic); K59.00 Constipation, unspecified
CPT/HCPCS: 27236; 36415; 71045; 73502; 73700; 80053; 81001; 82962; 83735; 84100; 85007; 85025; 85610; 86850; 93005; 97116; 97162; 97166; 97530; C1713; C1776; C9803; J2405; J3475; U0003; U0005

== ENCOUNTER → 2022-04-03 09:12 | Outpatient (CLI) | payer MEDICARE, SELFPAY ==
--- NOTE | 2022-04-03 09:22 | XR_ITS ---
FINAL REPORT CLINICAL HISTORY: f/u lt hip fx post op FINDINGS: LEFT HIP Two views of the left hip including an AP pelvis demonstrate postoperative changes from left hip arthroplasty. Hardware appears intact. The visualized bony structures are well aligned. No soft tissue abnormality is seen. IMPRESSION: Postoperative changes with no acute bony abnormality. Reviewed, Interpreted and Dictated by Fabiola Michaud MD Transcribed by Shakira Evans Authenticated and [facility]
== END ==
PROVIDERS: PCP Family Medicine; Visit Provider Orthopaedic Surgery
DX: S72.002A Fracture of unspecified part of neck of left femur, initial encounter for closed fracture (principal)
CPT/HCPCS: 73502

== ENCOUNTER → 2022-05-01 09:28 | Outpatient (CLI) | payer MEDICARE, SELFPAY ==
--- NOTE | 2022-05-01 09:40 | XR_ITS ---
FINAL REPORT CLINICAL HISTORY: f/u fracture COMPARISON: 04/03/2022 FINDINGS: Left hip Three views were obtained. There are postoperative changes from left hip arthroplasty. Findings are stable since the prior. There are mild degenerative changes of the right hip. Mild vascular calcification is identified. IMPRESSION: Stable appearance of the hip. Reviewed, Interpreted and Dictated by Raji Ayon III, MD Transcribed by Rina Manning Authenticated and [facility]
== END ==
PROVIDERS: PCP Nurse Practitioner Family; Visit Provider Orthopaedic Surgery
DX: S72.002A Fracture of unspecified part of neck of left femur, initial encounter for closed fracture (principal)
CPT/HCPCS: 73502

== ENCOUNTER → 2022-06-12 09:31 | Outpatient (CLI) | payer MEDICARE, SELFPAY ==
--- NOTE | 2022-06-12 09:37 | XR_ITS ---
FINAL REPORT CLINICAL HISTORY: s/p lt hip COMPARISON: 05/01/2022 FINDINGS: LEFT HIP Two views of the left hip including an AP pelvis demonstrate no acute fracture or dislocation. There is total left hip prosthesis. There are mild hypertrophic changes at the right acetabular margin. Alignment is normal. No soft tissue abnormality is seen. IMPRESSION: Total left hip prosthesis. Mild hypertrophic changes at the right acetabulum margin. No acute bony abnormality. Reviewed, Interpreted and Dictated by Brian Pitts MD Transcribed by Shakira Evans Authenticated and [facility]
== END ==
PROVIDERS: PCP Nurse Practitioner Family; Visit Provider Orthopaedic Surgery
DX: Z96.642 Presence of left artificial hip joint (principal); M25.552 Pain in left hip
CPT/HCPCS: 73502

== ENCOUNTER → 2022-09-18 08:55 | Outpatient (CLI) | payer MEDICARE, SELFPAY ==
--- NOTE | 2022-09-18 09:01 | XR_ITS ---
FINAL REPORT CLINICAL HISTORY: Lt hip pain, follow up sx from march COMPARISON: 06/12/2022 FINDINGS: LEFT HIP SERIES A single AP view of the pelvis and two views of the left hip were obtained. There is no acute fracture or dislocation. There are postoperative changes from the left hip arthroplasty. There is mild degenerative change of the right hip. There is mild degenerative change of the lower lumbar spine. There is no soft tissue abnormality. IMPRESSION: No acute bony abnormality. Postoperative changes as stated above. Mild degenerative changes as stated above. Reviewed, Interpreted and Dictated by Raji Ayon III, MD Transcribed by Lupe Graf Authenticated and . [facility]
== END ==
PROVIDERS: PCP Nurse Practitioner Family; Visit Provider Orthopaedic Surgery
DX: Z96.642 Presence of left artificial hip joint (principal); M25.552 Pain in left hip
CPT/HCPCS: 73502

== ENCOUNTER 2023-05-06 10:24 | Outpatient (CLI) | payer MEDICARE, SELFPAY ==
[2023-05-06 10:51] LABS: Basophils % 0.3 % (0.1-2.0); Eosinophils % 0.5 % (0.1-12.0); Hematocrit 37.6 % (37.0-47.0); Hemoglobin 12.3 g/dL (12.2-16.2); Lymphocytes # 1.3 K/mm3 (0.7-4.5); Lymphocytes % 15.8 % (10-50); Mean Corpuscular HGB Conc 32.6 g/dL (31.8-35.4); Mean Corpuscular Hemoglobin 30.7 pg (27.0-31.2); Mean Corpuscular Volume 94.2 fl (81-99); Mean Platelet Volume 8.3 fl (7.4-10.4); Monocytes # 0.6 K/mm3 (0.1-1.0); Monocytes % 7.1 % (1.7-9.3); Neutrophils # 6.1 K/mm3 (1.8-7.8); Neutrophils % 76.4 % (37.0-80.0); Platelet Count 195 K/mm3 (142-424); Red Blood Count 3.99 M/mm3 (4.20-5.40); Red Cell Distribution Width 13.5 % (11.5-17.5)
[2023-05-06 11:22] LABS: Alanine Aminotransferase 19 U/L (12-78); Alkaline Phosphatase 103 U/L (38-126); Anion Gap 9.6 mEq/L (5-15); Aspartate Amino Transferase 26 U/L (14-36); Bilirubin,Direct 0.1 mg/dl (0.0-0.4); Bilirubin,Indirect 0.6 mg/dL (0.0-0.9); Bilirubin,Total 0.7 mg/dl (0.2-1.3); Bilirubin,Unconjugated 0.6 mg/dL (0.0-1.1); Blood Urea Nitrogen 32 mg/dl (7-17); Calcium 9.3 mg/dl (8.4-10.2); Carbon Dioxide 26 mmol/L (22.0-30.0); Chloride 104 mmol/L (98-107); Chol/HDL Ratio 4.8 (1-3.5); Cholesterol 169 mg/dl (140-200); Estimated Glomerular Filt Rate 43 ml/min (>60); GFR (African American) 52 ML/MIN (>60); Glucose 131 mg/dl (74-100); HDL Cholesterol 35 mg/dl (40-60); Magnesium 1.8 mg/dl (1.6-2.3); Potassium 4.6 mmoL/L (3.5-5.1); Sodium 135 mmol/L (136-145); Total Protein,Serum 6.2 g/dl (6.3-8.2); Triglycerides 358 mg/dl (30-150); VLDL Cholesterol 72 mg/dL (0-40)
[2023-05-06 11:33] LABS: Direct LDL Cholesterol 62.48 mg/dL (100-129)
[2023-05-06 12:04] LABS: Thyroid Stimulating Hormone 2.03 uIU/mL (0.465-4.68)
== END 2023-05-06 23:59 ==
LOC: LAB 10:27
PROVIDERS: PCP Nurse Practitioner Family; Visit Provider Nurse Practitioner Family
DX: E11.9 Type 2 diabetes mellitus without complications (principal); I20.89 Other forms of angina pectoris; N18.2 Chronic kidney disease, stage 2 (mild); R06.00 Dyspnea, unspecified; Z79.4 Long term (current) use of insulin; Z79.899 Other long term (current) drug therapy
CPT/HCPCS: 36415; 80048; 80061; 80076; 83735; 84439; 84443; 85025

== ENCOUNTER 2023-05-24 11:29 | Outpatient (CLI) | payer MEDICARE, SELFPAY ==
--- NOTE | 2023-05-24 11:30 | CA_ITS ---
APPROVED REPORT EXAM: Comprehensive 2D, Doppler, and color-flow Echocardiogram Dialysis Technician: Brielle Perry RT(R) Ht: 5 ft 4 in Wt: 155lbs BSA: 1.76 BP: 121/34 mmHg Indications: angina, CP, DM, MENDOZA, ABN EKG, bradycardia. 2D Dimensions Left Atrium 4.40 cm F: 2.7 - 3.8 LVEF ([facility]) 64.90 % F: 54 - 74 LVOT 1.94 cm (M/F) 1.5-2.5 LV Volume 68.70 mL F: 46 - 106 LV Volume Index 39.0 mL/m2 F: 29 - 61 LA Volume 45.30 mL LA Volume Index 25.74 mL/m2 (M/F) 16-34 EF AP4 68.30 % EF AP2 65.5 % EF BP 64.9 % GL Strain -21.3 % M-Mode Dimensions RVDd 1.85 cm (0.9-2.6) LVDd 4.71 cm (3.5-5.7) Ao Diam 2.42 cm (2.0-3.7) LVDs 3.26 cm (3.5-5.7) IVSd 0.60 cm (0.6-1.1) PWd 0.85 cm (0.6-1.1) EF (Teich) 58.40% FS 30.80% EDV (Teich) 102.90 mL ESV (Teich) 42.80 mL LV Diastology E Decel Time 339 (160-240 msec) E/A Ratio 0.8 MED E' 6.6 (>= 7 cm/sec) MED A' 10.00 cm/s E'/MED E' Ratio 17.26 (<= 14) LAT E' 5.2 (>= 10 cm/sec) LAT A' 11.10 cm/s E/LAT E' Ratio 21.90 (<= 14) Mitral Valve MV E Max Collin. 114.0 (40-130 cm/s) MV A Velocity 151.0 (40-130 cm/s) E/A Ratio 0.75 MV Decel. Time 339 (160-240 ms) Tricuspid Valve TR P. Velocity 247.00 cm/s RAP Estimate 10.00 mmHg RVSP 34.50 mmHg Left Ventricle The left ventricle is normal size. The left ventricular systolic function is normal. The left ventricular ejection fraction is within the normal range. There is normal left ventricular wall thickness. There is normal LV segmental wall motion. Transmitral Doppler flow pattern suggests impaired LV relaxation. LVEF is 60%. Right Ventricle The right ventricle is normal size. The right ventricular systolic function is normal. Atria The left atrium size is normal. The right atrium size is normal. There is no Doppler evidence of interatrial shunt. Aortic Valve The aortic valve is mildly thickened. There is no aortic valvular stenosis. Mild aortic regurgitation. Mitral Valve The mitral valve leaflets are mildly thickened. No evidence of mitral valve stenosis. There is no mitral valve regurgitation noted. Tricuspid Valve The tricuspid valve leaflets are thin and pliable. Trace tricuspid regurgitation. There is insufficient TR jet to estimate RVSP. Pulmonic Valve The pulmonary valve is normal in structure. Trace pulmonic regurgitation. Great Vessels The aortic root is normal in size. The ascending aorta is normal in size. The IVC is not well visualized. Pericardium There is no pericardial effusion. Other Information Study Quality: Fair Conclusion Normal biventricular systolic function. Mild AI. Electronically signed by : Judy Salas MD 05/26/2023 11:49:59
--- NOTE | 2023-05-24 11:37 | NM_ITS ---
APPROVED REPORT Exam: Nuclear Stress Test Indication: Angina, SOB, HTN, CAD, DM, High cholesterol, Family history Patient Location: Outpatient Stress Tech: Kristin James [place] Tech:Rena House, ARRT, RT (R)(N) Ht: 5 ft 4 in Wt: 155 lbs Bra Size: 40DD HR: 60 bpm BP: 134/38 mmHg BSA: 1.76 m2 TID: 1.13 BMI: 26.6 History: Angina, SOB, HTN, CAD, DM, High cholesterol, Family history Procedure: Patient received 0.4 mg of intravenous Lexiscan, resting heart rate 60 bpm, resting blood pressure 134/38 mmHg, with Lexiscan maximum heart rate achieved was 84 bpm which is % of the maximum predicted heart rate and blood pressure was 135/40 mmHg. With Lexiscan, patient denied any complaint of chest pain. Cardiac Stress and Resting SPECT Images: Cardiac Stress and Resting SPECT images were obtained using technetium 99m Myoview 32.0 mCi stress and 9.92 mCi at rest. Resting and stress imaging in supine and prone positions demonstrate no evidence of fixed or reversible perfusion defects. Gated imaging demonstrates normal global and regional LV systolic function. LVEF is documented at 71%. Conclusion: No evidence of fixed or reversible perfusion defects. Gated imaging demonstrates normal global and regional LV systolic function. LVEF is documented at 71%. Electronically signed by : Judy Salas MD 05/25/2023 11:29:16
[2023-05-24] MEDS: REGADENOSON 0.4MG/5ML SYRINGE 0.400000000000000022 MG IV (13:27)
[2023-05-24] MEDS: SODIUM CHLORIDE 0.9% 10ML SYR (RAD ONLY) 10 ML IV ×2 (13:28)
[2023-05-24] MEDS: ISOTOPE MYOVIEW (PER STUDY) 1 DOSE IV (13:28)
--- NOTE | 2023-05-24 13:37 | CA_ITS ---
APPROVED REPORT Exam: Pharmacologic Technologist: Kristin Mata, Ht: 5 ft 4 in Wt: 154 lbs BSA: 1.75 m2 HR: 60 bpm BP: 134/38 mmHg Rhythm: NSR Medical History Medications: Amlodipine,,,,, Levothyroxine,,,,, Carvedilol,,,,, Nexium,,,,, Vit D3,,,,, ProMETHAZINE,,,,, CloPIdogrel,,,,, Vit b 12,,,,, DOxazosin,,,,, SeNnosides,,,,, Evolocumab,,,,, OxYCODONE-ACETAMINOPHEN,,,,, Stress Test Details Test: LEXISCAN Reason for pharmacologic stress test: physical limitation. HR Resting HR: 60 bpm Max Heart Rate (APMHR): 137 bpm Max HR Achieved: 84 bpm Target HR (85% APMHR): 116 bpm % of APMHR: 61 Recovery HR: 72 bpm BP Resting BP: 134.0/38.0 mmHg Max BP: 135.0/40.0 mmHg Recovery BP: 127.0/43.0 mmHg ECG Resting ECG: Normal sinus rhythm, PVCs Stress ECG: No significant ST changes Arrhythmia: PVCs Clinical Exercise duration: 04:00 min Highest Stage Achieved: Exercise capacity: 1.0 METs Stress ECG Conclusion Symptoms: SOA, chest pressure Arrhythmias/Ectopy: Occasional PVCs ST-T Changes: No significant ST changes Conclusion: Unremarkable Lexiscan stress test. Myoview images are reported separately. Test Summary REST . . . . . . . Resting REST 07:56 . . 60 . 134/ 38 . . Stage 1 01:00 . . 77 . . . . Stage 2 01:00 . . 84 . 130/ 46 . . Stage 3 01:00 . . 79 . 135/ 40 . . Stage 4 01:00 . . 71 . 133/ 42 . Stop exercise at 04:00 RECOVERY 01:00 . . 69 . . . . RECOVERY 02:00 . . 73 . 127/ 42 . . RECOVERY 03:00 . . 71 . 127/ 43 . . RECOVERY 03:01 . . 71 . 127/ 43 . . Electronically signed by : Judy Salas MD 05/25/2023 11:28:25
== END 2023-05-24 23:59 ==
LOC: RAD 11:30
PROVIDERS: PCP Nurse Practitioner Family; Visit Provider Nurse Practitioner Family
DX: I25.118 Atherosclerotic heart disease of native coronary artery with other forms of angina pectoris (principal); R06.00 Dyspnea, unspecified; E11.22 Type 2 diabetes mellitus with diabetic chronic kidney disease; N18.2 Chronic kidney disease, stage 2 (mild); Z79.4 Long term (current) use of insulin
CPT/HCPCS: 78452; 93017; 93018; 93306; A9502; J2785

== ENCOUNTER 2023-06-03 11:03 | Outpatient (CLI) | payer MEDICARE, SELFPAY | END 2023-06-03 23:59 | LOC: RT 11:05 | PROVIDERS: PCP Nurse Practitioner Family; Visit Provider Nurse Practitioner Family | DX: I20.89 Other forms of angina pectoris (principal); I49.3 Ventricular premature depolarization; R00.2 Palpitations | CPT/HCPCS: 93225 ==

== ENCOUNTER 2023-06-07 10:14 | Outpatient (CLI) | payer MEDICARE, SELFPAY | END 2023-06-07 23:59 | LOC: RT 10:14 | PROVIDERS: PCP Nurse Practitioner Family; Visit Provider Nurse Practitioner Family | DX: I20.89 Other forms of angina pectoris (principal); I49.3 Ventricular premature depolarization; R00.2 Palpitations | CPT/HCPCS: 93270 ==